=== PATIENT | female | born 1935 | race Caucasian/White ===

== ENCOUNTER 2017-06-03 10:14 | Inpatient (IN) | payer MEDICARE, OTHER ==
[~2017-06-03] VITALS: Ht 157.5 cm; Wt 75.0 kg
[2017-06-03] VITALS (7 sets, daily range): BP systolic 98–174; BP diastolic 56–79; PULSE 44–56; RESP 20; Ht 157.5 cm; Wt 75.0 kg
--- NOTE | 2017-06-03 10:46 | ERD ---
ER Documentation Chief Complaint Chief Complaint dizziness x 10 days HPI 81-year-old woman complains of dizziness 2-3 days. She states she feels weak, denies history of bradycardia, denies fevers or chills. She fell a month ago and fractured her right upper extremity, but she states at that time her symptoms were not due to dizziness and that fall was unrelated to today's symptoms. She denies digoxin use, no chest pain or shortness of breath, no headache or blurry vision. ROS All systems reviewed and are negative except as per history of present illness. Medications Home Meds Reported Medications Pregabalin* (Lyrica*) 50 Mg Capsule, 50 MG PO BID, CAP 06/03/17 Olmesartan/Hydrochlorothiazide (Olmesartan-Hctz 40-12.5 mg Tab) 1 Each Tablet, 1 TAB PO DAILY, #30 06/03/17 Memantine HCl/Donepezil HCl (Namzaric 28 mg-10 mg Capsule) 1 Each Cap.spr.24, 1 TAB PO DAILY, #30 06/03/17 Nebivolol Hcl* (Bystolic*) 10 Mg Tablet, 10 MG PO DAILY, #30 TAB 06/03/17 Atorvastatin* (Atorvastatin*) 40 Mg Tablet, 40 MG PO QHS, #30 TAB 06/03/17 Levothyroxine Sodium* (Levothyroxine Sodium*) 100 Mcg Tablet, 100 MCG PO BEFORE BREAKFAST, #30 TAB 06/03/17 Allergies Allergies: Coded Allergies: No Known Allergy (Unverified , 06/03/17) PMhx/Soc Hypertension, dyslipidemia, hypothyroidism, dementia Medical and Surgical Hx: pt denies Surgical Hx Hx Alcohol Use: No Hx Substance Use: No Hx Tobacco Use: No Smoking Status: Never smoker FmHx Family History: No diabetes Physical Exam Vitals Vital Signs Date Time Temp Pulse Resp B/P Pulse Ox O2 Delivery O2 Flow Rate FiO2 06/03/17 12:30 58 18 126/68 99 Room Air 06/03/17 12:23 65 18 163/65 99 Room Air 06/03/17 11:23 48 20 181/78 99 Room Air 06/03/17 10:52 Nasal Cannula 2 06/03/17 10:16 98.1 50 18 157/81 99 Physical Exam GENERAL: Well-developed, well-nourished, well-hydrated, appears dizzy HEENT: Moist mucous membranes, pink conjunctiva, no cervical spine tenderness or step-off deformities, no goiter, no jaundice or icterus, extraocular movements intact without pain. No submandibular induration, and no pharyngeal erythema NEURO: Alert and oriented 3, cranial nerves II through XII intact bilaterally, pupils equal round reactive to light, no focal deficits or facial asymmetry, sensation intact distally Strength 5/5 in upper and lower extremities bilaterally CARDIAC: Bradycardic and regular, no murmurs rubs or gallops LUNGS: Clear bilaterally no wheezing crackles or stridor ABDOMEN: Soft nontender, no guarding, no rigidity, no rebound, no psoas sign no obturator sign. Normoactive bowel sounds SKIN: Warm and dry to touch, no abrasions, contusions, or hematomas, no lacerations, no ecchymosis, no target lesions, and without ulcers EXTREMITIES: No clubbing cyanosis or edema, calves are bilaterally symmetrical, no Homans sign, no popliteal cord sign. Distal pulses equal and bilateral PSYCH: Normal affect without agitation or irritability Result Diagram: 06/03/17 1045 06/03/17 1045 Results 24 hrs Laboratory Tests Test 06/03/17 10:45 White Blood Count 7.110^3/ul Red Blood Count 4.2410^6/ul Hemoglobin 13.1g/dl Hematocrit 40.7% Mean Corpuscular Volume 96.0fl Mean Corpuscular Hemoglobin 30.9pg Mean Corpuscular Hemoglobin Concent 32.2g/dl Red Cell Distribution Width 12.5% Platelet Count 86486^3/UL Mean Platelet Volume 10.8fl Neutrophils % 58.6% Lymphocytes % 31.8% Monocytes % 7.2% Eosinophils % 1.6% Basophils % 0.7% Nucleated Red Blood Cells % 0.0/100WBC Neutrophils # 4.210^3/ul Lymphocytes # 2.310^3/ul Monocytes # 0.510^3/ul Eosinophils # 0.110^3/ul Basophils # 0.110^3/ul Nucleated Red Blood Cells # 0.010^3/ul Urine Color STRAW Urine Clarity CLEAR Urine pH 5.0 Urine Specific [place] 1.006 Urine Ketones NEGATIVEmg/dL Urine Nitrite NEGATIVEmg/dL Urine Bilirubin NEGATIVEmg/dL Urine Urobilinogen NEGATIVEmg/dL Urine Leukocyte Esterase 1+Noel/ul Urine Microscopic RBC 0/HPF Urine Microscopic WBC 3/HPF Urine Hemoglobin NEGATIVEmg/dL Urine Glucose NEGATIVEmg/dL Urine Total Protein NEGATIVEmg/dl Sodium Level 147mmol/L Potassium Level 4.3mmol/L Chloride Level 104mmol/L Carbon Dioxide Level 31mmol/L Anion Gap 16 Blood Urea Nitrogen 15mg/dl Creatinine 0.93mg/dl Glucose Level 99mg/dl Calcium Level 9.1mg/dl Total Bilirubin 0.5mg/dl Direct Bilirubin 0.00mg/dl Indirect Bilirubin 0.5mg/dl Aspartate Amino Transf (AST/SGOT) 27IU/L Alanine Aminotransferase (ALT/SGPT) 28IU/L Alkaline Phosphatase 140IU/L Troponin I < 0.012ng/ml Total Protein 8.1g/dl Albumin 4.5g/dl Globulin 3.60g/dl Albumin/Globulin Ratio 1.25 Lipase 201U/L Current Medications Medications (Trade) Dose Ordered Sig/Sudheer Route PRN Reason Start Time Stop Time Status Last Admin Dose Admin Lorazepam (Ativan) 0.5 mg ONCE ONCE PO 06/03/17 11:00 06/03/17 11:01 DC 06/03/17 10:58 Enalaprilat (Vasotec Iv) 1.25 mg ONCE ONCE IV 06/03/17 11:30 06/03/17 11:31 DC Procedures/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 Patient was afebrile EKG performed, read by me: Sinus bradycardia 56 bpm, normal sinus rhythm, normal axis, no acute ST segment changes, narrow QRS complex, with good R-wave progression in precordial leads. Chest X-ray 1V Interpreted by me: Soft Tissue: No acute abnormalities Bones: No acute abnormalities Mediastinum/Cardiac Silhouette/Lungs: No acute abnormalities I administered enalapril 2 5 mg IV for hypertension and lorazepam 0.5 mg p.o. for anxiety. CBC and electrolytes are normal, liver function tests were normal, troponin was negative. Urine analysis appears negative for infection. CT scan of the brain has been ordered results are pending I will follow-up. Patient has no focal neurologic deficits and her mental status is at baseline although she has had concerning dizziness for the last few days and has bradycardia mostly between the 40s and 50s. She will be admitted to telemetry setting for continued medical management cardiology consultation. Patient admitted to telemetry. Departure Diagnosis: Primary Impression: Dizziness Additional Impression: Symptomatic bradycardia Condition: NOAH Palma MD Jun 03, 2017 10:46
[2017-06-03] MEDS ORDERED: LORAZEPAM 0.5 MG TAB PO ONE (11:00)
[2017-06-03 11:01] LABS: BASOPHIL # 0.1 10^3/ul (0.0-0.1); BASOPHILS % 0.7 % (0.0-2.0); EOSINOPHILS # 0.1 10^3/ul (0.0-0.5); EOSINOPHILS % 1.6 % (0.0-7.0); HEMATOCRIT 40.7 % (37.0-47.0); HEMOGLOBIN 13.1 g/dl (12.0-16.0); LYMPHOCYTES # 2.3 10^3/ul (0.8-2.9); LYMPHOCYTES % 31.8 % (15.0-51.0); MEAN CORPUSCULAR HEMOGLOBIN 30.9 pg (29.0-33.0); MEAN CORPUSCULAR HGB CONC 32.2 g/dl (32.0-37.0); MEAN PLATELET VOLUME 10.8 fl (7.4-10.4); MONOCYTE # 0.5 10^3/ul (0.3-0.9); MONOCYTES % 7.2 % (0.0-11.0); NEUTROPHIL # 4.2 10^3/ul (1.6-7.5); NEUTROPHILS % 58.6 % (39.0-77.0); PLATELET COUNT 213 10^3/UL (140-415); RED BLOOD COUNT 4.24 10^6/ul (4.20-5.40); RED CELL DISTRIBUTION WIDTH 12.5 % (11.5-14.5); WHITE BLOOD COUNT 7.1 10^3/ul (4.8-10.8)
[2017-06-03 11:05] LABS: ADD UMIC YES; UR ASCORBIC ACID NEGATIVE (NEGATIVE); UR BILIRUBIN (Dip) NEGATIVE (NEGATIVE); UR BLOOD (Dip) NEGATIVE (NEGATIVE); UR CLARITY CLEAR (CLEAR); UR COLOR STRAW (YELLOW); UR GLUCOSE (Dip) NEGATIVE (NEGATIVE); UR KETONES (Dip) NEGATIVE (NEGATIVE); UR LEUKOCYTE ESTERASE (Dip) 1+ Leu/ul (NEGATIVE); UR NITRITE (Dip) NEGATIVE (NEGATIVE); UR NONSQUAMOUS EPITHELIAL CELL 1 /HPF (NONE SEEN); UR RBC 0 /HPF (0-5); UR SPECIFIC GRAVITY (Dip) 1.006 (1.003-1.030); UR TOTAL PROTEIN (Dip) NEGATIVE (NEGATIVE); UR UROBILINOGEN (Dip) NEGATIVE (NEGATIVE)
[2017-06-03] MEDS ORDERED: ATOR40TA68 PO (11:14)
[2017-06-03] MEDS ORDERED: LEVO100T87 PO (11:14)
[2017-06-03] MEDS ORDERED: MEMA1CAP3 PO (11:15)
[2017-06-03] MEDS ORDERED: NEBI10TA2 PO (11:15)
[2017-06-03] MEDS ORDERED: OLME1TAB83 PO (11:16)
[2017-06-03] MEDS ORDERED: PREG50CA PO (11:16)
[2017-06-03 11:27] LABS: ALANINE AMINOTRANSFERASE 28 IU/L (13-69); ALBUMIN 4.5 g/dl (3.3-4.9); ALBUMIN/GLOBULIN RATIO 1.25; ALKALINE PHOSPHATASE 140 IU/L (42-121); ANION GAP 16 (8-16); ASPARTATE AMINO TRANSFERASE 27 IU/L (15-46); BILIRUBIN,INDIRECT 0.5 mg/dl (0-1.1); BILIRUBIN,TOTAL 0.5 mg/dl (0.2-1.3); BLOOD UREA NITROGEN 15 mg/dl (7-20); CALCIUM 9.1 mg/dl (8.4-10.2); CARBON DIOXIDE 31 mmol/L (21-31); CHLORIDE 104 mmol/L (97-110); CREATININE 0.93 mg/dl (0.44-1.00); GLUCOSE 99 mg/dl (70-220); POTASSIUM 4.3 mmol/L (3.5-5.1); SODIUM 147 mmol/L (135-144); TOTAL PROTEIN 8.1 g/dl (6.1-8.1)
[2017-06-03] MEDS ORDERED: ENALAPRILAT 1.25 MG INJ IV ONE (11:30)
[2017-06-03 11:41] LABS: TROPONIN-I < 0.012 ng/ml (0.00-0.12)
--- NOTE | 2017-06-03 11:51 | RADRPT ---
PROCEDURE: XR Chest. CLINICAL INDICATION: Shortness of breath. TECHNIQUE: Single frontal view. COMPARISON: 08/14/2011. FINDINGS: The lungs are clear. The heart is enlarged. There is calcification in the aorta consistent with atherosclerosis. There is no pleural effusion. There is no pneumothorax. IMPRESSION: 1. Cardiomegaly and atherosclerosis. 2. Clear lungs. 3. Otherwise unremarkable chest radiograph. RPTAT: QQ .Madan Carey MD, MD Date Time Electronically viewed and signed by .Madan Carey MD, MD on 06/03/2017 11:51 .R/
--- NOTE | 2017-06-03 15:04 | RADRPT ---
PROCEDURE: CT BRAIN WITHOUT CONTRAST. CLINICAL INDICATION: Dizziness and at the cardia TECHNIQUE: A CT of the brain was performed on a multidetector high-resolution CT scanner utilizing axial imaging from the skull base through the vertex without IV contrast. Multiplanar reformatted images were made. Images were reviewed on a PACS workstation. The CTDIvol is 44 mGy and the DLP is 630.2 mGycm. One or more of the following dose reduction techniques were used: - Automated exposure control. - Adjustment of the mA and/or kV according to patient size. - Use of iterative reconstruction technique. COMPARISON: None FINDINGS: The posterior fossa structures are unremarkable. The janette, midbrain, and medulla appear to be with n ormal limits. There is no evidence of acute intracranial hemorrhage, infarct, or extra-axial fluid collection. No gross mass effect or midline shift. Cerebral sulci, cisternal spaces, and ventricles are prominent. Mild periventricular/subcortical white matter lucencies are identified. 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 The visualized paranasal sinuses are clear. The mastoid air cells are well-aerated. The calvarium is unremarkable. IMPRESSION: 1. No evidence of acute intracranial hemorrhage, infarct, or extra-axial fluid collection. 2. 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 RPTAT: AAPP Physician Carlos Alberto Date Time Electronically viewed and signed by Physician Carlos Alberto on 06/03/2017 15:04 BIRDIE/
[2017-06-03] MEDS ORDERED: hydrALAzine 20 MG INJ IV PRN (15:30)
--- NOTE | 2017-06-03 16:37 | CONS ---
Date/Time of Note Date/Time of Note DATE: 06/03/17 TIME: 16:32 Assessment/Plan Assessment/Plan Additional Assessment/Plan Fatigue, dizziness and poor appetite Sinus bradycardia Hypertension Status post recent mechanical fall -Patient with multiple complaints including fatigue, dizziness, chest wall pain and shortness of breath. Patient found to be bradycardic in the emergency room with heart rates in the 40s-50s. On review of medication list, patient is on beta-caitlin Bystolic. I agree with stopping this medication. Continue telemetry monitoring, check echocardiogram, carotid Dopplers, TSH. Consultation Date/Type/Reason Admit Date/Time Jun 03, 2017 at 12:36 Type of Consultation: cv Reason for Consultation Bradycardia Hx of Present Illness This is an 81-year-old female with past medical history of hypertension, dyslipidemia who presents with overall not feeling well and fatigue. In discussion with patient and granddaughter at bedside who assisted with translation, patient had a mechanical fall approximately 2 weeks ago. At that time she fell on her chest and her arm and broke her wrist. Since then, she has been having more frequent episodes of dizziness as well as pain in her chest. The pain in her chest is reproducible with palpation of the chest wall and is achy like in nature. She also complains of intermittent dizziness at times, loss of appetite, fatigue, coldness and weight loss. She denies exertional chest pain. She does get dizziness at times at rest at times with exertion. She does feel short of breath at times when she gets dizzy. 12 point review of systems was performed with all pertinent positives and negatives mentioned above and all else is negative Past Medical History Medical History: high cholesterol, hypertension Past Surgical History Past Surgical Hx: no surgical history Family History Significant Family History: no pertinent family hx Social History Alcohol Use: none Smoking Status: Never smoker Other Social History Lives at home, family lives nearby Exam/Review of Systems Vital Signs Vitals Vital Signs Date Time Temp Pulse Resp B/P Pulse Ox O2 Delivery O2 Flow Rate FiO2 06/03/17 16:00 44 06/03/17 14:26 98.3 20 174/79 98 Room Air 06/03/17 10:52 2 Exam No apparent distress, following commands, no dyspnea with speaking Constitutional: alert, oriented Head: normocephalic Respiratory: other (Coarse breath sounds bilaterally, no wheezing) Cardiovascular: other (S1-S2 heard), regular rate and rhythm Gastrointestinal: bowel sounds, non-tender, soft Extremities: other (No significant lower extremity edema, cast right arm) Results Result Diagram: 06/03/17 1045 06/03/17 1045 Results 24 hrs Laboratory Tests Test 06/03/17 10:45 White Blood Count 7.1 Red Blood Count 4.24 Hemoglobin 13.1 Hematocrit 40.7 Mean Corpuscular Volume 96.0 Mean Corpuscular Hemoglobin 30.9 Mean Corpuscular Hemoglobin Concent 32.2 Red Cell Distribution Width 12.5 Platelet Count 213 Mean Platelet Volume 10.8 H Neutrophils % 58.6 Lymphocytes % 31.8 Monocytes % 7.2 Eosinophils % 1.6 Basophils % 0.7 Nucleated Red Blood Cells % 0.0 Neutrophils # 4.2 Lymphocytes # 2.3 Monocytes # 0.5 Eosinophils # 0.1 Basophils # 0.1 Nucleated Red Blood Cells # 0.0 Urine Color STRAW Urine Clarity CLEAR Urine pH 5.0 Urine Specific [place] 1.006 Urine Ketones NEGATIVE Urine Nitrite NEGATIVE Urine Bilirubin NEGATIVE Urine Urobilinogen NEGATIVE Urine Leukocyte Esterase 1+ H Urine Microscopic RBC 0 Urine Microscopic WBC 3 Urine Hemoglobin NEGATIVE Urine Glucose NEGATIVE Urine Total Protein NEGATIVE Sodium Level 147 H Potassium Level 4.3 Chloride Level 104 Carbon Dioxide Level 31 Anion Gap 16 Blood Urea Nitrogen 15 Creatinine 0.93 Glucose Level 99 Calcium Level 9.1 Total Bilirubin 0.5 Direct Bilirubin 0.00 Indirect Bilirubin 0.5 Aspartate Amino Transf (AST/SGOT) 27 Alanine Aminotransferase (ALT/SGPT) 28 Alkaline Phosphatase 140 H Troponin I < 0.012 Total Protein 8.1 Albumin 4.5 Globulin 3.60 H Albumin/Globulin Ratio 1.25 Lipase 201 Medications Medications Current Medications Hydralazine HCl (Apresoline) 10 mg Q4H PRN IV SBP>160; Start 06/03/17 at 15:30 ; Status UNV Atorvastatin Calcium (Lipitor) 40 mg QHS PO ; Start 06/03/17 at 21:00; Status UNV Pregabalin (Lyrica) 50 mg BID PO ; Start 06/03/17 at 21:00; Status UNV Miscellaneous Information 1 tab DAILY PO ; Start 06/04/17 at 09:00; Status UNV Losartan Potassium (Cozaar) 100 mg DAILY PO ; Start 06/04/17 at 09:00; Status UNV Procedures Procedures ECG demonstrates sinus bradycardia 56 bpm, PACs, QRS 92 ms, nonspecific ST abnormality Narayan Ingram DO Jun 03, 2017 16:37
[2017-06-03] MEDS: SOD CHLORIDE 0.45% 1,000 ML IV SCH (17:02)
--- NOTE | 2017-06-03 17:11 | HP ---
Date/Time of Note Date/Time of Note DATE: 06/03/17 TIME: 17:05 Assessment/Plan VTE Prophylaxis VTE Prophylaxis Intervention: heparin Lines/Catheters IV Catheter Type (from Nrsg): Saline Lock Assessment/Plan Chief Complaint/Hosp Course Patient is 81-year-old female who presents to [facility] for symptoms of right thoracic pain and bradycardia. Assessment and plan Symptomatic bradycardia Dizziness Right thoracic pain Right arm fracture, 2 weeks prior Hypertension Mild hypernatremia Questionable UTI Vaginal itching Dementia Dyslipidemia High arthritis Hypothyroidism -Cardiology consulted, recommendations appreciated, echocardiogram and ultrasound carotids pending -MRI pending, CT noted, within normal limits -Mild hydration, antibiotics for possible UTI related dizziness -Pain control as needed -Muscle relaxer for possible muscular skeletal pain, chest x-ray negative for acute thoracic fracture, may consider dedicated thoracic x-ray if symptoms persist -Possible bradycardia secondary to not taking medications today, levothyroxine, restart in the a.m. -Blood pressure control as necessary, holding beta-caitlin, losartan twice daily per cardiology -Follow-up in the a.m. Problems: HPI/ROS Admit Date/Time Admit Date/Time Jun 03, 2017 at 12:36 Hx of Present Illness Patient is a 81-year-old female with a past medical history significant for hypothyroidism, mild dementia, hypertension, dyslipidemia, arthritis who presents to [facility] for 10 day history of dizziness and right sided thoracic pain that comes and goes. Patient's has been feeling ill for approximately 7 tired time since her fall approximately 2 weeks ago, which she fractured her right arm and is currently in a cast. The fall was unrelated to any current symptoms. Patient states that although she did not take her medications today, she normally takes her medications and follows up with primary care provider normally. Patient states that even while seated currently she is feeling as if the room is spinning around and she is scared to walk. Patient denies any shortness of breath and thoracic pain is mainly limited to movement oriented pain. Patient has never had episodes like this before. Patient denies nausea vomiting, shortness of breath, bowel or bladder dysfunction PMH: Hypothyroidism, dementia, hypertension, dyslipidemia, arthritis, right arm fracture 2 weeks ago status post mechanical fall PSH: None Social: Denies Meds: See med rec for dosages, atorvastatin, Bystolic, olmesartan, hydrochlorthiazide, memantine, donepezil, Lyrica, levothyroxine PMH/Family/Social Past Medical History Medical History: high cholesterol, hypertension Past Surgical History Past Surgical Hx: no surgical history Social History Alcohol Use: none Smoking Status: Never smoker Exam/Review of Systems Vital Signs Vitals Vital Signs Date Time Temp Pulse Resp B/P Pulse Ox O2 Delivery O2 Flow Rate FiO2 06/03/17 16:00 44 06/03/17 14:26 98.3 20 174/79 98 Room Air 06/03/17 10:52 2 Exam Exam Physical exam General: Patient is laying in bed and answers questions appropriately Mentation: Patient is alert and oriented 4, Head: Normocephalic atraumatic Eyes: EOMI, pupils reactive to light Neck: Supple, nontender, midline Respiratory: Clear to auscultation bilaterally Cardiovascular: regular rate, no obvious murmurs Gastrointestinal: non-tender to palpation, bowel sounds heard. Neurological: Moves all extremities spontaneously Skin: No new skin lesions Labs Result Diagram: 06/03/17 1045 06/03/17 1045 Medications Medications Current Medications Hydralazine HCl (Apresoline) 10 mg Q4H PRN IV SBP>170; Start 06/03/17 at 15:30 ; Status UNV Atorvastatin Calcium (Lipitor) 40 mg QHS PO ; Start 06/03/17 at 21:00; Status UNV Pregabalin (Lyrica) 50 mg BID PO ; Start 06/03/17 at 21:00; Status UNV Miscellaneous Information 1 tab DAILY PO ; Start 06/04/17 at 09:00; Status UNV Losartan Potassium 25 mg 25 mg BID PO ; Start 06/03/17 at 21:00; Status UNV Ceftriaxone Sodium (Rocephin) 50 ml @ 100 mls/hr Q24H IVPB ; Start 06/03/17 at 17:00; Status UNV Nystatin (Nystatin Powder) 1 applic BID TOP ; Start 06/03/17 at 21:00; Status UNV Methocarbamol (Robaxin) 500 mg TID PO ; Start 06/03/17 at 21:00; Status UNV NOAH RIVERA Jun 03, 2017 17:11
[2017-06-03] MEDS: CEFTRIAXONE 1 GM/50 ML (PMX) 50 ML IVPB SCH (17:16)
[2017-06-03] MEDS: DONEPEZIL HCL XX SCH (17:30)
[2017-06-03] MEDS ORDERED: ACETAMINOPHEN 325 MG TAB PO PRN (17:30)
[2017-06-03] MEDS ORDERED: ONDANSETRON 4 MG INJ IV PRN (17:30)
[2017-06-03] MEDS ORDERED: NACL 0.9% 3 ML SYG IV SCH (17:30)
[2017-06-03] MEDS ORDERED: LORAZEPAM 2 MG INJ IV PRN (17:30)
[2017-06-03] MEDS ORDERED: OXYCODONE/ACETAMINOPHEN (5/325) TAB PO PRN (17:30)
[2017-06-03] MEDS: MEMANTINE HCL XX SCH (17:30)
--- NOTE | 2017-06-03 17:40 | RADRPT ---
PROCEDURE: US carotid arteries. CLINICAL INDICATION: Dizziness. TECHNIQUE: Multiple sonographic images of the carotid arteries and vertebral arteries were obtaine d utilizing austin scale, duplex, and color-flow imaging. The images were reviewed on a PACS workstati on. COMPARISON: No prior studies are available for comparison. FINDINGS: Evaluation of the right carotid bifurcation region reveals mild atherosclerotic disease. Evaluation of the left carotid bifurcation region reveals mild atherosclerotic disease. There is antegrade flow within the vertebral arteries bilaterally. RIGHT CAROTID MEASUREMENTS: Common Carotid [id number] (cm/sec) Internal Carotid Artery 45 (cm/sec) External Carotid Artery 49 (cm/sec) Vertebral Artery 28 (cm/sec) Internal Carotid/Common Carotid1.2 LEFT CAROTID MEASUREMENTS: Common Carotid [id number] (cm/sec) Internal Carotid Artery 66 (cm/sec) External Carotid Artery 41 (cm/sec) Vertebral Artery 47 (cm/sec) Internal Carotid/Common Carotid1.3 Validated velocity measurements with angiographic measurements. Velocity criteria are extrapolated f rom diameter data as defined by the Society of Radiologists in Ultrasound Consensus Conference. Radi ology 2003; 229;340-346. This study does indirectly reference the measurement of the distal ICA kyung meter as the denominator for stenosis measurement. IMPRESSION: 1. Less than 50% stenosis bilaterally in the internal carotid arteries. 2. Normal antegrade flow in the vertebral arteries bilaterally. RPTAT: QQ SRU Consensus Conference Criteria for the Diagnosis of Carotid Artery Stenosis* Degree of Stenosis, % ICA PSV, cm/sec Plaque Estimate, % ICA/CCA PSV Ratio Normal <125 None <2.0 <50 <125 <50 <2.0 50 69 125-230 >50 2.0-4.0 >70 but less than near occlusion >230 >50 <4.0 Near occlusion High, low, or undetectable Visible Variable Total occlusion Undetectable Visible, no detectable lumen Not applicable *Cartoid artery stenosis: austin-scale and Doppler US diagnosis. Society of Radiologists in Ultrasound Consensus Conference. Radiology 2003; 229: 340-346 .Madan Carey MD, Date Time Electronically viewed and signed by .Madan Carey MD, on 06/03/2017 17:39 .R/
[2017-06-03] MEDS: LOSARTAN 50 MG TAB PO SCH (21:00)
[2017-06-03] MEDS: METHOCARBAMOL 500 MG TAB PO SCH (21:59)
[2017-06-03] MEDS: ATORVASTATIN 40 MG TAB PO SCH (21:59)
[2017-06-03] MEDS: NYSTATIN 30 GM POWDER BTL TOP SCH (21:59)
[2017-06-03] MEDS: PREGABALIN 50 MG CAP PO SCH (21:59)
[2017-06-03] MEDS: HEPARIN 5,000 UNIT/0.5 ML VIAL SC SCH (22:02)
[2017-06-04] VITALS (13 sets, daily range): BP systolic 91–153; BP diastolic 54–68; PULSE 43–56; RESP 18–20
[2017-06-04] MEDS: MEMANTINE HCL XX SCH ×2 (01:30→09:08)
[2017-06-04] MEDS: DONEPEZIL HCL XX SCH ×2 (01:30→09:08)
[2017-06-04] MEDS: PANTOPRAZOLE (EC) 40 MG TAB PO SCH (06:21)
[2017-06-04] MEDS: LEVOTHYROXINE 100 MCG TAB PO SCH (06:21)
[2017-06-04] MEDS: HEPARIN 5,000 UNIT/0.5 ML VIAL SC SCH ×3 (06:22→20:52)
[2017-06-04] MEDS: SOD CHLORIDE 0.45% 1,000 ML IV SCH (07:20)
[2017-06-04 07:51] LABS: BASOPHIL # 0.1 10^3/ul (0.0-0.1); EOSINOPHILS # 0.1 10^3/ul (0.0-0.5); EOSINOPHILS % 1.7 % (0.0-7.0); HEMATOCRIT 38.8 % (37.0-47.0); HEMOGLOBIN 12.1 g/dl (12.0-16.0); LYMPHOCYTES # 2.6 10^3/ul (0.8-2.9); MEAN CORPUSCULAR HEMOGLOBIN 29.9 pg (29.0-33.0); MEAN CORPUSCULAR HGB CONC 31.2 g/dl (32.0-37.0); MEAN CORPUSCULAR VOLUME 95.8 fl (82.0-101.0); MEAN PLATELET VOLUME 10.9 fl (7.4-10.4); MONOCYTE # 0.5 10^3/ul (0.3-0.9); MONOCYTES % 7.5 % (0.0-11.0); NEUTROPHIL # 3.8 10^3/ul (1.6-7.5); NEUTROPHILS % 53.5 % (39.0-77.0); PLATELET COUNT 203 10^3/UL (140-415); RED BLOOD COUNT 4.05 10^6/ul (4.20-5.40); RED CELL DISTRIBUTION WIDTH 12.7 % (11.5-14.5); WHITE BLOOD COUNT 7.2 10^3/ul (4.8-10.8)
[2017-06-04 08:13] LABS: ALBUMIN 3.9 g/dl (3.3-4.9); ALBUMIN/GLOBULIN RATIO 1.25; BILIRUBIN,INDIRECT 0.7 mg/dl (0-1.1); BILIRUBIN,TOTAL 0.7 mg/dl (0.2-1.3); CALCIUM 8.6 mg/dl (8.4-10.2); CHOL/HDL RATIO 2.5 RATIO; CREATININE 0.95 mg/dl (0.44-1.00); POTASSIUM 4.2 mmol/L (3.5-5.1)
[2017-06-04] MEDS: NYSTATIN 30 GM POWDER BTL TOP SCH ×2 (09:00→21:00)
[2017-06-04] MEDS ORDERED: LOSARTAN 50 MG TAB PO SCH (09:00)
[2017-06-04] MEDS: METHOCARBAMOL 500 MG TAB PO SCH ×3 (09:07→20:47)
[2017-06-04] MEDS: PREGABALIN 50 MG CAP PO SCH ×2 (09:07→20:47)
[2017-06-04] MEDS: LOSARTAN 50 MG TAB PO SCH (09:08)
--- NOTE | 2017-06-04 14:20 | PN ---
Date/Time of Note Date/Time of Note DATE: 06/04/17 TIME: 14:19 Assessment/Plan VTE Prophylaxis VTE Prophylaxis Intervention: SCD's Lines/Catheters IV Catheter Type (from Nrsg): Peripheral IV Assessment/Plan Chief Complaint/Hosp Course Patient is 81-year-old female who presents to [facility] for symptoms of right thoracic pain and bradycardia. Assessment and plan Symptomatic bradycardia Dizziness Right thoracic pain Right arm fracture, 2 weeks prior Hypertension Mild hypernatremia Questionable UTI Vaginal itching Dementia Dyslipidemia High arthritis Hypothyroidism -Cardiology consulted, recommendations appreciated, echocardiogram and ultrasound carotids noted -MRI pending, CT noted. -Mild hydration, antibiotics for possible UTI related dizziness -Pain control as needed -Muscle relaxer for possible muscular skeletal pain, chest x-ray negative for acute thoracic fracture, may consider dedicated thoracic x-ray if symptoms persist, but resolved for now -Possible bradycardia secondary to not taking medications today, levothyroxine, restart in the a.m. Still bradycardic however. -Blood pressure control as necessary, holding beta-caitlin, losartan twice daily per cardiology -Follow-up in the a.m. Problems: Subjective 24 Hr Interval Summary Free Text/Dictation right thorax pain has subsided, still dizzy Exam/Review of Systems Vital Signs Vitals Vital Signs Date Time Temp Pulse Resp B/P Pulse Ox O2 Delivery O2 Flow Rate FiO2 06/04/17 12:01 51 06/04/17 11:46 98.0 18 121/56 96 06/03/17 18:22 Room Air 06/03/17 10:52 2 Intake and Output 06/03/17 06/03/17 06/04/17 15:00 23:00 07:00 Intake Total 290 ml 550 ml Balance 290 ml 550 ml Exam Physical exam General: Patient is laying in bed and answers questions appropriately Mentation: Patient is alert and oriented 4, Head: Normocephalic atraumatic Eyes: EOMI, pupils reactive to light Neck: Supple, nontender, midline Respiratory: Clear to auscultation bilaterally Cardiovascular: regular rate, no obvious murmurs Gastrointestinal: non-tender to palpation, bowel sounds heard. Neurological: Moves all extremities spontaneously Skin: No new skin lesions Results Result Diagram: 06/04/17 0647 06/04/17 0647 Results 24 hrs Laboratory Tests Test 06/03/17 18:23 06/04/17 06:47 Troponin I < 0.012 Thyroid Stimulating Hormone (TSH) 1.430 White Blood Count 7.2 Red Blood Count 4.05 L Hemoglobin 12.1 Hematocrit 38.8 Mean Corpuscular Volume 95.8 Mean Corpuscular Hemoglobin 29.9 Mean Corpuscular Hemoglobin Concent 31.2 L Red Cell Distribution Width 12.7 Platelet Count 203 Mean Platelet Volume 10.9 H Neutrophils % 53.5 Lymphocytes % 36.0 Monocytes % 7.5 Eosinophils % 1.7 Basophils % 1.0 Nucleated Red Blood Cells % 0.0 Neutrophils # 3.8 Lymphocytes # 2.6 Monocytes # 0.5 Eosinophils # 0.1 Basophils # 0.1 Nucleated Red Blood Cells # 0.0 Sodium Level 141 Potassium Level 4.2 Chloride Level 102 Carbon Dioxide Level 29 Anion Gap 14 Blood Urea Nitrogen 17 Creatinine 0.95 Glucose Level 84 Calcium Level 8.6 Total Bilirubin 0.7 Direct Bilirubin 0.00 Indirect Bilirubin 0.7 Aspartate Amino Transf (AST/SGOT) 25 Alanine Aminotransferase (ALT/SGPT) 32 Alkaline Phosphatase 122 H Total Protein 7.0 # Albumin 3.9 Globulin 3.10 Albumin/Globulin Ratio 1.25 Triglycerides Level 123 Cholesterol Level 153 LDL Cholesterol, Calculated 69 HDL Cholesterol 59 Cholesterol/HDL Ratio 2.5 Medications Medications Current Medications Hydralazine HCl (Apresoline) 10 mg Q4H PRN IV SBP>170; Start 06/03/17 at 15:30 Atorvastatin Calcium (Lipitor) 40 mg QHS PO Last administered on 06/03/17 21: 59; Admin Dose 40 MG; Start 06/03/17 at 21:00 Pregabalin (Lyrica) 50 mg BID PO Last administered on 06/04/17 09:07; Admin Dose 50 MG; Start 06/03/17 at 21:00 Memantine (Namenda) 10 mg BID PO ; Start 06/04/17 at 21:00 Losartan Potassium 25 mg 25 mg BID PO Last administered on 06/04/17 09:08; Admin Dose 25 MG; Start 06/03/17 at 21:00 Ceftriaxone Sodium (Rocephin) 50 ml @ 100 mls/hr Q24H IVPB Last administered on 06/03/17 17:16; Admin Dose 100 MLS/HR; Start 06/03/17 at 17:00 Nystatin (Nystatin Powder) 1 applic BID TOP Last administered on 06/03/17 21: 59; Admin Dose 1 APPLIC; Start 06/03/17 at 21:00 Methocarbamol 500 mg 500 mg TID PO Last administered on 06/04/17 13:38; Admin Dose 500 MG; Start 06/03/17 at 21:00 Sodium Chloride (1/2 NS) 1,000 ml @ 70 mls/hr [id number] IV ; Start 06/03/17 at 17 :02 Lorazepam (Ativan) 0.5 mg Q6H PRN IV ANXIETY; Start 06/03/17 at 17:30 Ondansetron HCl (Zofran Inj) 4 mg Q6H PRN IV NAUSEA AND/OR VOMITING; Start 06/03/17 at 17:30 Acetaminophen (Tylenol Tab) 650 mg Q6H PRN PO PAIN LEVEL 1-3 OR FEVER; Start 06/03/17 at 17:30 Oxycodone/ Acetaminophen (Percocet (5/ 325)) 1 tab Q6H PRN PO PAIN LEVEL 6-10; Start 06/03/17 at 17:30 Bisacodyl (Dulcolax) 5 mg DAILY PRN PO CONSTIPATION; Start 06/03/17 at 17:30 Pantoprazole (Protonix Tab) 40 mg DAILY@06 PO Last administered on 06/04/17 06 :21; Admin Dose 40 MG; Start 06/04/17 at 06:00 Heparin Sodium (Porcine) (Heparin (5000 Units/0.5 ml)) 5,000 unit Q8 SC Last administered on 06/04/17 13:39; Admin Dose 5,000 UNIT; Start 06/03/17 at 22:00 Donepezil HCl (Aricept) 10 mg DAILY PO ; Start 06/05/17 at 09:00 NOAH RIVERA Jun 04, 2017 14:20
--- NOTE | 2017-06-04 15:30 | RADRPT ---
Echocardiogram Report Patient Name: KYAW MÁRQUEZ Gender: Female Date: 1935 Study Date: 04-Jun-2017 Performance Improvement Analyst: Jake Sam [facility] Location: 5539 Ref. Physician: NARAYAN INGRAM Quality: Adequate Procedures: Transthoracic echocardiogram with complete 2D, M-Mode, and doppler examination. Indications: Chest Pain. Dizziness. Hypertension. 2D/M Mode Doppler Measurement Value Normal Ranges Measurement Value Normal Ranges LVIDd 2D 4.7 3.5 - 5.6 cm GEENA Vmax 1.3 cm2 LVIDs 2D 2.5 2.1 - 4.1 cm GEENA VTI 1.5 cm2 FS 2D 45.8 % AV Mean Walker 1.4 m/sec LVPWd 2D 1.0 0.6 - 1.1 cm AV Mean PG 9.0 mmHg IVSd 2D 1.0 0.6 - 1.1 cm AV Peak Walker 2.3 m/sec IVS/LVPW 2D 1.0 AV Peak PG 22.0 mmHg AoR Diam 2D 2.3 2.0 - 3.7 cm AV VTI 42.3 cm LA/Ao 2D 2 0 - 1 AI Peak PG 55.0 mmHg EDV 2D 102.0 cm3 AI Peak Walker 3.7 m/sec ESV 2D 16.2 cm3 AI PHT 994.0 msec LA Dimen 2D 3.5 2.3 - 4.0 cm LVOT Mean Walker 0.7 m/sec LVOT Diam 1.9 cm LVOT Mean PG 2.0 mmHg LVOT Area 2.8 cm2 LVOT Peak Walker 1.1 m/sec LVOT Peak PG 5.0 mmHg LVOT VTI 22.5 cm MV E Peak Walker 0.8 m/sec MV A Peak Walker 0.9 m/sec MV E/A 0.9 MV Decel Time 296 msec MV E/A 0.9 Findings Left Ventricle: Normal left ventricular systolic function. Normal left ventricular cavity size. Normal left ventricular wall thickness. Ejection fraction is visually estimated at 65 %. Tissue Doppler/Mitral Doppler indices are consistent with impaired relaxation (Stage I diastolic dysfunction). Right Ventricle: Normal right ventricular size. Normal right ventricular systolic function. Left Atrium: The left atrium is normal in size. Right Atrium: The right atrium is normal in size. Mitral Valve: Mild mitral leaflet calcification. Mild mitral annular calcification. Trace mitral regurgitation. Aortic Valve: Aortic sclerosis without stenosis. Aortic cusps appear moderately calcified. Mild aortic valve regurgitation. Tricuspid Valve: Normal appearance and function of the tricuspid valve with trace physiologic regurgitation. Pulmonic Valve: Normal pulmonic valve appearance. Pericardium: Normal pericardium with no significant pericardial effusion. Aorta: Normal aortic root. IVC: Normal size and normal respiratory collapse consistent with normal right atrial pressure. Conclusions 1.Normal left ventricular systolic function. Normal left ventricular cavity size. Normal left ventricular wall thickness. Ejection fraction is visually estimated at 65 %. Tissue Doppler/Mitral Doppler indices are consistent with impaired relaxation (Stage I diastolic dysfunction). 2.Normal right ventricular size. Normal right ventricular systolic function. 3.The left atrium is normal in size. 4.The right atrium is normal in size. 5.Aortic sclerosis without stenosis. Aortic cusps appear moderately calcified. Mild aortic valve regurgitation. 6.No significant valvular stenosis or regurgitation seen of remaining visualized valves. 7.Normal pericardium with no significant pericardial effusion. Electronically Signed By: Narayan Ingram 04-Jun-2017 15:29:59 -0800 Patient Name: KYAW MÁRQUEZ Study Date: 04-Jun-2017 [id number]
[2017-06-04] MEDS: CEFTRIAXONE 1 GM/50 ML (PMX) 50 ML IVPB SCH (16:46)
--- NOTE | 2017-06-04 17:49 | CONS ---
Date/Time of Note Date/Time of Note DATE: 06/04/17 TIME: 17:47 Assessment/Plan Assessment/Plan Additional Assessment/Plan Fatigue, dizziness and poor appetite Sinus bradycardia Preserved ejection fraction Hypertension Status post recent mechanical fall -Heart rate trend improving on telemetry, would continue to hold AV kendall blocking agents. Blood pressure on the lower end, would adjust Cozaar to daily. Carotid Dopplers with no significant stenosis. Continue telemetry monitoring. Consultation Date/Type/Reason Admit Date/Time Jun 03, 2017 at 12:36 Initial Consult Date Type of Consultation: cv 24 HR Interval Summary Free Text/Dictation Patient seen and examined, less dizziness Exam/Review of Systems Vital Signs Vitals Vital Signs Date Time Temp Pulse Resp B/P Pulse Ox O2 Delivery O2 Flow Rate FiO2 06/04/17 16:01 55 06/04/17 15:34 98.3 18 91/54 96 06/03/17 18:22 Room Air 06/03/17 10:52 2 Intake and Output 06/03/17 06/03/17 06/04/17 15:00 23:00 07:00 Intake Total 290 ml 550 ml Balance 290 ml 550 ml Exam No apparent distress, following commands Constitutional: alert, oriented Head: normocephalic Respiratory: other (Coarse breath sounds bilaterally, no wheezing) Cardiovascular: other (S1-S2 heard), regular rate and rhythm Gastrointestinal: bowel sounds, non-tender, soft Extremities: other (No significant edema) Results Result Diagram: 06/04/17 0647 06/04/17 0647 Results 24 hrs Laboratory Tests Test 06/03/17 18:23 06/04/17 06:47 Troponin I < 0.012 Thyroid Stimulating Hormone (TSH) 1.430 White Blood Count 7.2 Red Blood Count 4.05 L Hemoglobin 12.1 Hematocrit 38.8 Mean Corpuscular Volume 95.8 Mean Corpuscular Hemoglobin 29.9 Mean Corpuscular Hemoglobin Concent 31.2 L Red Cell Distribution Width 12.7 Platelet Count 203 Mean Platelet Volume 10.9 H Neutrophils % 53.5 Lymphocytes % 36.0 Monocytes % 7.5 Eosinophils % 1.7 Basophils % 1.0 Nucleated Red Blood Cells % 0.0 Neutrophils # 3.8 Lymphocytes # 2.6 Monocytes # 0.5 Eosinophils # 0.1 Basophils # 0.1 Nucleated Red Blood Cells # 0.0 Sodium Level 141 Potassium Level 4.2 Chloride Level 102 Carbon Dioxide Level 29 Anion Gap 14 Blood Urea Nitrogen 17 Creatinine 0.95 Glucose Level 84 Calcium Level 8.6 Total Bilirubin 0.7 Direct Bilirubin 0.00 Indirect Bilirubin 0.7 Aspartate Amino Transf (AST/SGOT) 25 Alanine Aminotransferase (ALT/SGPT) 32 Alkaline Phosphatase 122 H Total Protein 7.0 # Albumin 3.9 Globulin 3.10 Albumin/Globulin Ratio 1.25 Triglycerides Level 123 Cholesterol Level 153 LDL Cholesterol, Calculated 69 HDL Cholesterol 59 Cholesterol/HDL Ratio 2.5 Medications Medications Current Medications Hydralazine HCl (Apresoline) 10 mg Q4H PRN IV SBP>170; Start 06/03/17 at 15:30 Atorvastatin Calcium (Lipitor) 40 mg QHS PO Last administered on 06/03/17 21: 59; Admin Dose 40 MG; Start 06/03/17 at 21:00 Pregabalin (Lyrica) 50 mg BID PO Last administered on 06/04/17 09:07; Admin Dose 50 MG; Start 06/03/17 at 21:00 Memantine (Namenda) 10 mg BID PO ; Start 06/04/17 at 21:00 Losartan Potassium 25 mg 25 mg BID PO Last administered on 06/04/17 09:08; Admin Dose 25 MG; Start 06/03/17 at 21:00 Ceftriaxone Sodium (Rocephin) 50 ml @ 100 mls/hr Q24H IVPB Last administered on 06/04/17 16:46; Admin Dose 100 MLS/HR; Start 06/03/17 at 17:00 Nystatin (Nystatin Powder) 1 applic BID TOP Last administered on 06/03/17 21: 59; Admin Dose 1 APPLIC; Start 06/03/17 at 21:00 Methocarbamol 500 mg 500 mg TID PO Last administered on 06/04/17 13:38; Admin Dose 500 MG; Start 06/03/17 at 21:00 Sodium Chloride (1/2 NS) 1,000 ml @ 70 mls/hr [id number] IV ; Start 06/03/17 at 17 :02 Lorazepam (Ativan) 0.5 mg Q6H PRN IV ANXIETY; Start 06/03/17 at 17:30 Ondansetron HCl (Zofran Inj) 4 mg Q6H PRN IV NAUSEA AND/OR VOMITING; Start 06/03/17 at 17:30 Acetaminophen (Tylenol Tab) 650 mg Q6H PRN PO PAIN LEVEL 1-3 OR FEVER; Start 06/03/17 at 17:30 Oxycodone/ Acetaminophen (Percocet (5/ 325)) 1 tab Q6H PRN PO PAIN LEVEL 6-10; Start 06/03/17 at 17:30 Bisacodyl (Dulcolax) 5 mg DAILY PRN PO CONSTIPATION; Start 06/03/17 at 17:30 Pantoprazole (Protonix Tab) 40 mg DAILY@06 PO Last administered on 06/04/17 06 :21; Admin Dose 40 MG; Start 06/04/17 at 06:00 Heparin Sodium (Porcine) (Heparin (5000 Units/0.5 ml)) 5,000 unit Q8 SC Last administered on 06/04/17 13:39; Admin Dose 5,000 UNIT; Start 06/03/17 at 22:00 Donepezil HCl (Aricept) 10 mg DAILY PO ; Start 06/05/17 at 09:00 Narayan Ingram DO Jun 04, 2017 17:49
--- NOTE | 2017-06-04 19:42 | RADRPT ---
PROCEDURE: MRI Brain and IACs, without contrast. CLINICAL INDICATION: Dizziness. TECHNIQUE: An MRI of the brain was performed utilizing the following sequences: Sagittal T1 weigh jermain, axial T2 weighted, axial diffusion weighted (EPI technique [id number]), axial ADC mapping, and axia l FLAIR. Additionally, thin section imaging through the internal auditory canals was performed utili magaling the following sequences: 3D volume high resolution T2 weighted images. COMPARISON: Brain CT06/03/2017. FINDINGS: MRI BRAIN: No diffusion weighted abnormalities are seen to suggest the presence of acute ischemia or recent inf arct. There is 1.3 x 1.3 x 1 cm (AP x transverse x craniocaudal) extra-axial mass overlying the lef t posterior frontal lobe with associated gradient susceptibility effect which likely represent a ino cified meningioma. There is no evidence of intracranial hemorrhage or midline shift. No extra-axial fluid collections are seen. The ventricles and sulci are mildly enlarged indicative of volume loss. There are mild scattered foci of T2 FLAIR hyperintensity in the periventricular, deep, and subcortic al white matter, which are nonspecific in etiology but likely reflect chronic small vessel ischemic changes. Small T2 hyperintense foci are noted in bilateral lentiform nuclei and caudate nuclei wh ich likely represent dilated perivascular spaces. No abnormal intracranial vascular flow void is noted. The visualized paranasal sinuses demonstrate m ild scattered mucosal thickening. Mild opacification of the right mastoid air cells are noted. MRI IACS: The internal auditory canals are patent. The seventh and eighth cranial nerve complexes are unremar kable. No cerebellar pontine angle mass lesion is detected. The inner ear structures including the cochlea, vestibule and semicircular canals are unremarkable. No vascular loops are identified. Th e visualized fifth cranial nerves and Meckel's cave reveal no abnormality. The mastoid air cells are clear. IMPRESSION: 1. No acute intracranial hemorrhage or infarction. 2. 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 3. Mild chronic small vessel changes and mild generalized cerebral volume loss. 4. Otherwise unremarkable unenhanced MRI of internal auditory canals. RPTAT: HFN .Jamshid Crockett MD, Date Time Electronically viewed and signed by .Jamshid Crockett MD, on 06/04/2017 19:42 .N/
[2017-06-04] MEDS: MEMANTINE 10 MG TAB PO SCH (20:47)
[2017-06-04] MEDS: ATORVASTATIN 40 MG TAB PO SCH (20:47)
[2017-06-05] VITALS (11 sets, daily range): BP systolic 101–132; BP diastolic 55–60; PULSE 44–54; RESP 18–20
[2017-06-05] MEDS: SOD CHLORIDE 0.45% 1,000 ML IV SCH ×2 (06:03→11:56)
[2017-06-05] MEDS: LEVOTHYROXINE 100 MCG TAB PO SCH (06:04)
[2017-06-05] MEDS: PANTOPRAZOLE (EC) 40 MG TAB PO SCH (06:04)
[2017-06-05] MEDS: HEPARIN 5,000 UNIT/0.5 ML VIAL SC SCH ×3 (06:11→20:51)
[2017-06-05 07:26] LABS: BASOPHILS % 0.6 % (0.0-2.0); EOSINOPHILS # 0.2 10^3/ul (0.0-0.5); EOSINOPHILS % 2.2 % (0.0-7.0); HEMATOCRIT 36.3 % (37.0-47.0); HEMOGLOBIN 11.4 g/dl (12.0-16.0); LYMPHOCYTES # 2.6 10^3/ul (0.8-2.9); LYMPHOCYTES % 38.8 % (15.0-51.0); MEAN CORPUSCULAR HEMOGLOBIN 30.2 pg (29.0-33.0); MEAN CORPUSCULAR HGB CONC 31.4 g/dl (32.0-37.0); MEAN PLATELET VOLUME 11.4 fl (7.4-10.4); MONOCYTE # 0.6 10^3/ul (0.3-0.9); MONOCYTES % 8.1 % (0.0-11.0); NEUTROPHIL # 3.4 10^3/ul (1.6-7.5); PLATELET COUNT 184 10^3/UL (140-415); RED BLOOD COUNT 3.78 10^6/ul (4.20-5.40); RED CELL DISTRIBUTION WIDTH 12.5 % (11.5-14.5); WHITE BLOOD COUNT 6.8 10^3/ul (4.8-10.8)
[2017-06-05 07:54] LABS: CALCIUM 8.6 mg/dl (8.4-10.2); CREATININE 0.92 mg/dl (0.44-1.00); MAGNESIUM 1.9 mg/dl (1.7-2.5); PHOSPHORUS 4.5 mg/dl (2.5-4.9); POTASSIUM 4.1 mmol/L (3.5-5.1)
[2017-06-05] MEDS: PREGABALIN 50 MG CAP PO SCH ×2 (08:49→20:42)
[2017-06-05] MEDS: MEMANTINE 10 MG TAB PO SCH ×2 (08:49→20:42)
[2017-06-05] MEDS: METHOCARBAMOL 500 MG TAB PO SCH ×3 (08:49→20:42)
[2017-06-05] MEDS ORDERED: LOSARTAN 50 MG TAB PO SCH (09:00)
[2017-06-05] MEDS: NYSTATIN 30 GM POWDER BTL TOP SCH ×2 (09:00→20:43)
[2017-06-05] MEDS ORDERED: DONEPEZIL 10 MG TAB PO SCH (09:00)
--- NOTE | 2017-06-05 11:45 | PN ---
Date/Time of Note Date/Time of Note DATE: 06/05/17 TIME: 11:40 Assessment/Plan VTE Prophylaxis VTE Prophylaxis Intervention: SCD's Lines/Catheters IV Catheter Type (from Nrsg): Peripheral IV Urinary Cath still in place: No Assessment/Plan Chief Complaint/Hosp Course Patient is 81-year-old female who presents to [facility] for symptoms of right thoracic pain and bradycardia. Assessment and plan Symptomatic bradycardia Dizziness Right thoracic pain Right arm fracture, 2 weeks prior Hypertension Mild hypernatremia Questionable UTI Vaginal itching Dementia Dyslipidemia High arthritis Hypothyroidism -Cardiology consulted, recommendations appreciated, echocardiogram and ultrasound carotids noted -MRI noted calcified meningioma, ?dizziness related, but unlikely, however patient still has dizziness despite current medical management. will try meclizine and will consult neuro to review imaging, Dr. Alfred Wood. -Mild hydration, antibiotics for possible UTI related dizziness, stopping today -Pain control as needed -Muscle relaxer for possible muscular skeletal pain, chest x-ray negative for acute thoracic fracture, may consider dedicated thoracic x-ray if symptoms persist, but resolved for now -Possible bradycardia secondary to not taking medications today, levothyroxine, restarted, but still bradycardic, cards recs appreciated -Blood pressure control as necessary, holding beta-caitlin, losartan daily per cards -Follow-up in the a.m. dispo: -cards to manage BP meds, meds might have played a factor in dizziness ? hypotension -neurology consult/image review pending -back to home once cleared from cards and neuro Problems: Subjective 24 Hr Interval Summary Free Text/Dictation dizziness is improved Exam/Review of Systems Vital Signs Vitals Vital Signs Date Time Temp Pulse Resp B/P Pulse Ox O2 Delivery O2 Flow Rate FiO2 06/05/17 08:00 44 06/05/17 07:41 98.0 18 132/60 98 06/03/17 18:22 Room Air 06/03/17 10:52 2 Intake and Output 06/04/17 06/04/17 06/05/17 15:00 23:00 07:00 Intake Total 550 ml 800 ml Balance 550 ml 800 ml Exam Physical exam General: Patient is laying in bed and answers questions appropriately Mentation: Patient is alert and oriented 4, Head: Normocephalic atraumatic Eyes: EOMI, pupils reactive to light Neck: Supple, nontender, midline Respiratory: Clear to auscultation bilaterally Cardiovascular: regular rate, no obvious murmurs Gastrointestinal: non-tender to palpation, bowel sounds heard. Neurological: Moves all extremities spontaneously Skin: No new skin lesions Results Result Diagram: 06/05/1721 06/05/17 0621 Results 24 hrs Laboratory Tests Test 06/05/17 06:21 White Blood Count 6.8 Red Blood Count 3.78 L Hemoglobin 11.4 L Hematocrit 36.3 L Mean Corpuscular Volume 96.0 Mean Corpuscular Hemoglobin 30.2 Mean Corpuscular Hemoglobin Concent 31.4 L Red Cell Distribution Width 12.5 Platelet Count 184 Mean Platelet Volume 11.4 H Neutrophils % 50.0 Lymphocytes % 38.8 Monocytes % 8.1 Eosinophils % 2.2 Basophils % 0.6 Nucleated Red Blood Cells % 0.0 Neutrophils # 3.4 Lymphocytes # 2.6 Monocytes # 0.6 Eosinophils # 0.2 Basophils # 0.0 Nucleated Red Blood Cells # 0.0 Sodium Level 140 Potassium Level 4.1 Chloride Level 106 Carbon Dioxide Level 27 Anion Gap 11 Blood Urea Nitrogen 22 H Creatinine 0.92 Glucose Level 92 Calcium Level 8.6 Phosphorus Level 4.5 Magnesium Level 1.9 Medications Medications Current Medications Hydralazine HCl (Apresoline) 10 mg Q4H PRN IV SBP>170; Start 06/03/17 at 15:30 Atorvastatin Calcium (Lipitor) 40 mg QHS PO Last administered on 06/04/17 20: 47; Admin Dose 40 MG; Start 06/03/17 at 21:00 Pregabalin (Lyrica) 50 mg BID PO Last administered on 06/05/17 08:49; Admin Dose 50 MG; Start 06/03/17 at 21:00 Memantine 10 mg 10 mg BID PO Last administered on 06/05/17 08:49; Admin Dose 10 MG; Start 06/04/17 at 21:00 Ceftriaxone Sodium (Rocephin) 50 ml @ 100 mls/hr Q24H IVPB Last administered on 06/04/17 16:46; Admin Dose 100 MLS/HR; Start 06/03/17 at 17:00 Nystatin (Nystatin Powder) 1 applic BID TOP Last administered on 06/04/17 21: 00; Admin Dose 1 APPLIC; Start 06/03/17 at 21:00 Methocarbamol 500 mg 500 mg TID PO Last administered on 06/05/17 08:49; Admin Dose 500 MG; Start 06/03/17 at 21:00 Sodium Chloride (1/2 NS) 1,000 ml @ 70 mls/hr [id number] IV Last administered on 06/05/17 06:03; Admin Dose 70 MLS/HR; Start 06/03/17 at 17:02 Lorazepam (Ativan) 0.5 mg Q6H PRN IV ANXIETY; Start 06/03/17 at 17:30 Ondansetron HCl (Zofran Inj) 4 mg Q6H PRN IV NAUSEA AND/OR VOMITING; Start 06/03/17 at 17:30 Acetaminophen (Tylenol Tab) 650 mg Q6H PRN PO PAIN LEVEL 1-3 OR FEVER; Start 06/03/17 at 17:30 Oxycodone/ Acetaminophen (Percocet (5/ 325)) 1 tab Q6H PRN PO PAIN LEVEL 6-10; Start 06/03/17 at 17:30 Bisacodyl (Dulcolax) 5 mg DAILY PRN PO CONSTIPATION; Start 06/03/17 at 17:30 Pantoprazole (Protonix Tab) 40 mg DAILY@06 PO Last administered on 06/05/17 06:04; Admin Dose 40 MG; Start 06/04/17 at 06:00 Heparin Sodium (Porcine) (Heparin (5000 Units/0.5 ml)) 5,000 unit Q8 SC Last administered on 06/05/17 06:11; Admin Dose 5,000 UNIT; Start 06/03/17 at 22:00 Donepezil HCl (Aricept) 10 mg DAILY PO Last administered on 06/05/17 08:49; Admin Dose 10 MG; Start 06/05/17 at 09:00 Losartan Potassium (Cozaar) 25 mg DAILY PO Last administered on 06/05/17 08: 49; Admin Dose 25 MG; Start 06/05/17 at 09:00 NOAH RIVERA Jun 05, 2017 11:45
[2017-06-05] MEDS ORDERED: MECLIZINE 12.5 MG TAB PO PRN (12:00)
--- NOTE | 2017-06-05 12:11 | CONS ---
Date/Time of Note Date/Time of Note DATE: 06/05/17 TIME: 12:06 Assessment/Plan Assessment/Plan Additional Assessment/Plan Fatigue, dizziness and poor appetite, improved Sinus bradycardia Preserved ejection fraction Hypertension Status post recent mechanical fall -Heart rate trend improving on telemetry, would continue to hold AV kendall blocking agents. Blood pressure trend improved on lower dose of Cozaar, but still borderline, would decrease dose further. On review of medications, patient is on Aricept, this could cause bradycardia and dizziness, I will stop this medication. Possible side effect of Namenda as well is dizziness, consider holding this medication. Carotid Dopplers with no significant stenosis. No need for pacemaker at the current time. Consultation Date/Type/Reason Admit Date/Time Jun 03, 2017 at 12:36 Type of Consultation: cv 24 HR Interval Summary Free Text/Dictation Patient seen and examined in discussion with [id number] on the phone for translation. Patient feeling better, denies dizziness. Exam/Review of Systems Vital Signs Vitals Vital Signs Date Time Temp Pulse Resp B/P Pulse Ox O2 Delivery O2 Flow Rate FiO2 06/05/17 11:57 97.9 53 18 110/56 98 06/03/17 18:22 Room Air 06/03/17 10:52 2 Intake and Output 06/04/17 06/04/17 06/05/17 15:00 23:00 07:00 Intake Total 550 ml 800 ml Balance 550 ml 800 ml Exam Follows commands, no apparent distress Constitutional: alert, oriented Head: normocephalic Respiratory: other (Coarse breath sounds bilaterally, no wheezing) Cardiovascular: other (S1-S2 heard), regular rate and rhythm Gastrointestinal: bowel sounds, non-tender, soft Extremities: edema (Trace) Results Result Diagram: 06/05/1762006/05/17620 Results 24 hrs Laboratory Tests Test 06/05/17 06:21 White Blood Count 6.8 Red Blood Count 3.78 L Hemoglobin 11.4 L Hematocrit 36.3 L Mean Corpuscular Volume 96.0 Mean Corpuscular Hemoglobin 30.2 Mean Corpuscular Hemoglobin Concent 31.4 L Red Cell Distribution Width 12.5 Platelet Count 184 Mean Platelet Volume 11.4 H Neutrophils % 50.0 Lymphocytes % 38.8 Monocytes % 8.1 Eosinophils % 2.2 Basophils % 0.6 Nucleated Red Blood Cells % 0.0 Neutrophils # 3.4 Lymphocytes # 2.6 Monocytes # 0.6 Eosinophils # 0.2 Basophils # 0.0 Nucleated Red Blood Cells # 0.0 Sodium Level 140 Potassium Level 4.1 Chloride Level 106 Carbon Dioxide Level 27 Anion Gap 11 Blood Urea Nitrogen 22 H Creatinine 0.92 Glucose Level 92 Calcium Level 8.6 Phosphorus Level 4.5 Magnesium Level 1.9 Medications Medications Current Medications Hydralazine HCl (Apresoline) 10 mg Q4H PRN IV SBP>170; Start 06/03/17 at 15:30 Atorvastatin Calcium (Lipitor) 40 mg QHS PO Last administered on 06/04/17 20: 47; Admin Dose 40 MG; Start 06/03/17 at 21:00 Pregabalin (Lyrica) 50 mg BID PO Last administered on 06/05/17 08:49; Admin Dose 50 MG; Start 06/03/17 at 21:00 Memantine (Namenda) 10 mg BID PO Last administered on 06/05/17 08:49; Admin Dose 10 MG; Start 06/04/17 at 21:00 Nystatin (Nystatin Powder) 1 applic BID TOP Last administered on 06/04/17 21: 00; Admin Dose 1 APPLIC; Start 06/03/17 at 21:00 Methocarbamol 500 mg 500 mg TID PO Last administered on 06/05/17 08:49; Admin Dose 500 MG; Start 06/03/17 at 21:00 Sodium Chloride (1/2 NS) 1,000 ml @ 70 mls/hr [id number] IV Last administered on 06/05/17 06:03; Admin Dose 70 MLS/HR; Start 06/03/17 at 17:02 Lorazepam (Ativan) 0.5 mg Q6H PRN IV ANXIETY; Start 06/03/17 at 17:30 Ondansetron HCl (Zofran Inj) 4 mg Q6H PRN IV NAUSEA AND/OR VOMITING; Start 06/03/17 at 17:30 Acetaminophen (Tylenol Tab) 650 mg Q6H PRN PO PAIN LEVEL 1-3 OR FEVER; Start 06/03/17 at 17:30 Oxycodone/ Acetaminophen (Percocet (5/ 325)) 1 tab Q6H PRN PO PAIN LEVEL 6-10; Start 06/03/17 at 17:30 Bisacodyl (Dulcolax) 5 mg DAILY PRN PO CONSTIPATION; Start 06/03/17 at 17:30 Pantoprazole (Protonix Tab) 40 mg DAILY@06 PO Last administered on 06/05/17 06:04; Admin Dose 40 MG; Start 06/04/17 at 06:00 Heparin Sodium (Porcine) (Heparin (5000 Units/0.5 ml)) 5,000 unit Q8 SC Last administered on 06/05/17 06:11; Admin Dose 5,000 UNIT; Start 06/03/17 at 22:00 Losartan Potassium (Cozaar) 25 mg DAILY PO Last administered on 06/05/17 08: 49; Admin Dose 25 MG; Start 06/05/17 at 09:00 Cephalexin (Keflex) 500 mg Q8 PO ; Start 06/05/17 at 14:00; Stop 06/07/17 at 13:59 Meclizine HCl (Antivert) 12.5 mg TID PRN PO dizziness; Start 06/05/17 at 12:00 Narayan Ingram DO Jun 05, 2017 12:11
[2017-06-05] MEDS: MECLIZINE 12.5 MG TAB PO SCH ×2 (12:51→20:42)
[2017-06-05] MEDS: CEPHALEXIN 500 MG CAP PO SCH ×2 (13:00→20:42)
--- NOTE | 2017-06-05 14:49 | CONS ---
DATE OF ADMISSION: 06/03/2017 DATE OF CONSULTATION: NEUROLOGICAL CONSULTATION Thank you, Dr. Denis, for your kind referral for evaluation of dizziness. HISTORY OF PRESENT ILLNESS: The patient is an 81-year-old lady with past medical history of hypothy roidism, hypertension, dyslipidemia, arthritis who presented with chest pain and dizziness for about 10 days. She suffered a fall and broke her right arm about 2 weeks ago tripping at night at home. I talked to the patient using her granddaughter on the phone as an tool and die repairer, so the patient told me that she did have blunt head trauma and she hit her head when she fell. Since, she complains of severe dizziness, it is vertiginous dizziness, overall has gotten somewhat better in the hospital, but still present, especially worsening with movements. The patient also found to have bradycardia and heart rate in the 40s to 50s and layout mechanic is on case adjusting her medications. PAST MEDICAL HISTORY: As above. FAMILY HISTORY: No pertinent family history. SOCIAL HISTORY: No alcohol, tobacco, drug use. The patient had CAT scan followed by MRI of the brain. MRI shows a small 1.3 cm probable calcified meningioma overlying posterior frontal lobe. MRI was done without contrast. No mass effect or edema seen. Her labs show hemoglobin 11, hematocrit 36, normal WBCs and platelets. BUN 22, creatinine 0.92. No rmal liver function tests. Urinalysis with 1+ leukocyte esterase, 3 WBCs. CURRENT MEDICATIONS: 1. Losartan. 2. Keflex. 3. Antivert 12.5 as needed for dizziness. 4. She is getting Namenda 10 mg twice daily. 5. L-thyroxine. 6. Pantoprazole. 7. Heparin. 8. Atorvastatin. 9. Gabapentin 50 twice daily. 10. Nystatin. 11. Robaxin. 12. Lorazepam. 13. . HOME MEDICATIONS: Included Namenda, but she was taking XR 28 mg 1 time a day. PHYSICAL EXAMINATION: VITAL SIGNS: 97.9 temperature, 52 pulse, 110/56, blood pressure, 18 respirations. GENERAL: Not in acute distress, lying in bed. HEENT: Normocephalic, atraumatic head. NECK: No carotid bruits. No thyromegaly. LUNGS: Clear to auscultation bilaterally. CARDIAC: Normal cardiac rhythm and sounds. ABDOMEN: Soft. EXTREMITIES: No cyanosis, clubbing or edema. Right forearm is in cast. NEUROLOGIC EXAM: She is awake, alert, and oriented x3 with fluent speech. Cranial nerve examinatio n shows intact visual garza bilaterally. Pupils reactive from 4 to 2 mm bilaterally. Extraocular movements intact without nystagmus. Symmetrical face. Preserved facial strength and sensation. To ngue is in midline. Palate elevates symmetrically. Motor strength examination preserved in all ext remities. Normal bulk, tone and strength. Sensory examination intact to light touch and pain. Zoe p tendon reflexes 2+ throughout, downgoing toes bilaterally. Coordination preserved on [id number] nger testing. No dysmetria or tremor. Gait was not assessed. The patient gets very vertiginous wi th movements or getting up according to her, so I did not perform Jerusalem-Hallpike maneuver. A Jerusalem-Hallpike maneuver was not done. IMPRESSION: Vertigo following blunt head trauma secondary to incidental fall 2 weeks ago, especiall y noticeable about 10 days ago. Overall, slightly getting better. Vertigo has definite positional component that likely represents benign positional vertigo. I am not able to obtain her Jerusalem-Hallpik e maneuver. I will change meclizine from p.r.n. to around the clock, also I would recommend to get physical therapy with vestibular exercises. Thank you very much for this interesting consultation. The patient has a small calcified meningioma which could be followed by serial MRI, probably needed to be repeated in 6 or 12 months. Dictated By: SANDRA DENNISON/BRIONNA Conf#: [id number] DID#: [id number] CC: CARRIE INMAN;*EndCC*
[2017-06-05] MEDS: ATORVASTATIN 40 MG TAB PO SCH (20:41)
[2017-06-06] VITALS (12 sets, daily range): BP systolic 98–136; BP diastolic 55–64; PULSE 46–58; RESP 18–20
[2017-06-06] MEDS: HEPARIN 5,000 UNIT/0.5 ML VIAL SC SCH ×3 (06:00→20:55)
[2017-06-06 06:21] LABS: WHITE BLOOD COUNT 5.9 10^3/ul (4.8-10.8)
[2017-06-06 06:22] LABS: BASOPHILS % 0.5 % (0.0-2.0); EOSINOPHILS # 0.1 10^3/ul (0.0-0.5); EOSINOPHILS % 2.2 % (0.0-7.0); HEMATOCRIT 38.4 % (37.0-47.0); HEMOGLOBIN 12.2 g/dl (12.0-16.0); LYMPHOCYTES # 2.6 10^3/ul (0.8-2.9); LYMPHOCYTES % 44.9 % (15.0-51.0); MEAN CORPUSCULAR HEMOGLOBIN 30.5 pg (29.0-33.0); MEAN CORPUSCULAR HGB CONC 31.8 g/dl (32.0-37.0); MONOCYTE # 0.5 10^3/ul (0.3-0.9); MONOCYTES % 8.4 % (0.0-11.0); NEUTROPHIL # 2.6 10^3/ul (1.6-7.5); NEUTROPHILS % 43.8 % (39.0-77.0); PLATELET COUNT 187 10^3/UL (140-415); RED CELL DISTRIBUTION WIDTH 12.7 % (11.5-14.5)
[2017-06-06] MEDS: PANTOPRAZOLE (EC) 40 MG TAB PO SCH (06:22)
[2017-06-06] MEDS: LEVOTHYROXINE 100 MCG TAB PO SCH (06:22)
[2017-06-06] MEDS: CEPHALEXIN 500 MG CAP PO SCH ×3 (06:23→20:51)
[2017-06-06 06:45] LABS: CALCIUM 8.9 mg/dl (8.4-10.2); CREATININE 0.97 mg/dl (0.44-1.00); MAGNESIUM 2.1 mg/dl (1.7-2.5); PHOSPHORUS 4.5 mg/dl (2.5-4.9); POTASSIUM 4.3 mmol/L (3.5-5.1)
[2017-06-06] MEDS: MECLIZINE 12.5 MG TAB PO SCH ×3 (08:53→20:52)
[2017-06-06] MEDS: MEMANTINE 10 MG TAB PO SCH ×2 (08:53→20:52)
[2017-06-06] MEDS: METHOCARBAMOL 500 MG TAB PO SCH ×3 (08:53→20:52)
[2017-06-06] MEDS: LOSARTAN 25 MG TAB PO SCH (08:54)
[2017-06-06] MEDS: NYSTATIN 30 GM POWDER BTL TOP SCH ×2 (08:55→20:55)
--- NOTE | 2017-06-06 09:18 | CONS ---
Date/Time of Note Date/Time of Note DATE: 06/06/17 TIME: 09:15 Assessment/Plan Assessment/Plan Chief Complaint/Hosp Course Fatigue, dizziness and poor appetite, improved Sinus bradycardia Preserved ejection fraction Hypertension Status post recent mechanical fall Problems: Additional Assessment/Plan 1) no malignant arrhythmias 2) no PPM 3) avoid av kendall blockers Consultation Date/Type/Reason Admit Date/Time Jun 03, 2017 at 12:36 Initial Consult Date Type of Consultation: cv Detailed Summary Respiratory: no complaints Cardiovascular: no complaints Gastrointestinal: no complaints Genitourinary: no complaints Skin: no complaints Neurologic: no complaints Lymphatic: no complaints Exam/Review of Systems Vital Signs Vitals Vital Signs Date Time Temp Pulse Resp B/P Pulse Ox O2 Delivery O2 Flow Rate FiO2 06/06/17 08:06 46 06/06/17 07:42 97.9 18 120/58 94 06/03/17 18:22 Room Air 06/03/17 10:52 2 Intake and Output 06/05/17 06/05/17 06/06/17 15:00 23:00 07:00 Intake Total 500 ml Balance 500 ml Exam Constitutional: alert, oriented Head: atraumatic, normocephalic Neck: supple Respiratory: clear to auscultation Cardiovascular: regular rate and rhythm Gastrointestinal: soft Musculoskeletal: nl extremities to inspection Extremities: normal pulses Results Result Diagram: 06/06/17 0534 06/06/17 0534 Results 24 hrs Laboratory Tests Test 06/06/17 05:34 White Blood Count 5.9 Red Blood Count 4.00 L Hemoglobin 12.2 Hematocrit 38.4 Mean Corpuscular Volume 96.0 Mean Corpuscular Hemoglobin 30.5 Mean Corpuscular Hemoglobin Concent 31.8 L Red Cell Distribution Width 12.7 Platelet Count 187 Mean Platelet Volume 11.0 H Neutrophils % 43.8 Lymphocytes % 44.9 Monocytes % 8.4 Eosinophils % 2.2 Basophils % 0.5 Nucleated Red Blood Cells % 0.0 Neutrophils # 2.6 Lymphocytes # 2.6 Monocytes # 0.5 Eosinophils # 0.1 Basophils # 0.0 Nucleated Red Blood Cells # 0.0 Sodium Level 142 Potassium Level 4.3 Chloride Level 106 Carbon Dioxide Level 30 Anion Gap 10 Blood Urea Nitrogen 21 H Creatinine 0.97 Glucose Level 90 Calcium Level 8.9 Phosphorus Level 4.5 Magnesium Level 2.1 Medications Medications Current Medications Hydralazine HCl (Apresoline) 10 mg Q4H PRN IV SBP>170; Start 06/03/17 at 15:30 Atorvastatin Calcium (Lipitor) 40 mg QHS PO Last administered on 06/05/17 20: 41; Admin Dose 40 MG; Start 06/03/17 at 21:00 Pregabalin (Lyrica) 50 mg BID PO Last administered on 06/05/17 20:42; Admin Dose 50 MG; Start 06/03/17 at 21:00 Memantine (Namenda) 10 mg BID PO Last administered on 06/06/17 08:53; Admin Dose 10 MG; Start 06/04/17 at 21:00 Nystatin (Nystatin Powder) 1 applic BID TOP Last administered on 06/04/17 21: 00; Admin Dose 1 APPLIC; Start 06/03/17 at 21:00 Methocarbamol (Robaxin) 500 mg TID PO Last administered on 06/06/17 08:53; Admin Dose 500 MG; Start 06/03/17 at 21:00 Lorazepam (Ativan) 0.5 mg Q6H PRN IV ANXIETY; Start 06/03/17 at 17:30 Ondansetron HCl (Zofran Inj) 4 mg Q6H PRN IV NAUSEA AND/OR VOMITING; Start 06/03/17 at 17:30 Acetaminophen (Tylenol Tab) 650 mg Q6H PRN PO PAIN LEVEL 1-3 OR FEVER; Start 06/03/17 at 17:30 Oxycodone/ Acetaminophen (Percocet (5/ 325)) 1 tab Q6H PRN PO PAIN LEVEL 6-10; Start 06/03/17 at 17:30 Bisacodyl (Dulcolax) 5 mg DAILY PRN PO CONSTIPATION; Start 06/03/17 at 17:30 Pantoprazole (Protonix Tab) 40 mg DAILY@06 PO Last administered on 06/06/17 06:22; Admin Dose 40 MG; Start 06/04/17 at 06:00 Heparin Sodium (Porcine) (Heparin (5000 Units/0.5 ml)) 5,000 unit Q8 SC Last administered on 06/05/17 20:51; Admin Dose 5,000 UNIT; Start 06/03/17 at 22:00 Cephalexin (Keflex) 500 mg Q8 PO Last administered on 06/06/17 06:23; Admin Dose 500 MG; Start 06/05/17 at 14:00; Stop 06/07/17 at 13:59 Losartan Potassium (Cozaar) 12.5 mg DAILY PO Last administered on 06/06/17 08 :54; Admin Dose 12.5 MG; Start 06/06/17 at 09:00 Meclizine HCl (Antivert) 12.5 mg TID PO Last administered on 06/06/17 08:53; Admin Dose 12.5 MG; Start 06/05/17 at 13:00 PEG GARCIA MD Jun 06, 2017 09:18
[2017-06-06] MEDS: PREGABALIN 50 MG CAP PO SCH ×2 (09:56→20:52)
--- NOTE | 2017-06-06 11:43 | PN ---
Date/Time of Note Date/Time of Note DATE: 06/06/17 TIME: 11:43 Assessment/Plan VTE Prophylaxis VTE Prophylaxis Intervention: SCD's Lines/Catheters IV Catheter Type (from Nrs): Saline Lock Urinary Cath still in place: No Assessment/Plan Assessment/Plan 1. Symptomatic bradycardia - Cardiology consultation appreciated and recommending avoiding AV kendall blockers - ECHO and carotid US results reviewed 2. BPPV - Neurology on board and recommendations appreciated. Meclizine changed from p.r.n. to around the clock and recommending to get physical therapy with vestibular exercises. 3. Right thoracic pain- resolved - Muscle relaxer for possible muscular skeletal pain - chest x-ray negative for acute thoracic fracture 4. Right arm fracture, 2 weeks prior - Stable 5. Hypertension - continue current medications. - stable 6. Dementia - stable 7. Dyslipidemia 8. Hypothyroidism - on levothyroxine 9. Calcified meningioma - Neurology on board and recommending follow up MRI imaging in 6-12 months 10. Disposition - Will discharge once cleared by Neurology and able to ambulate without any issues Subjective 24 Hr Interval Summary Free Text/Dictation Patient states she is feeling better compared to yesterday. Denies any worsening of dizziness and has ambulated to restroom without any issues. Had no ambulated with PT yet today. No new complaints and no acute overnight events Exam/Review of Systems Vital Signs Vitals Vital Signs Date Time Temp Pulse Resp B/P Pulse Ox O2 Delivery O2 Flow Rate FiO2 06/06/17 11:33 97.9 56 18 136/63 98 06/03/17 18:22 Room Air 06/03/17 10:52 2 Intake and Output 06/05/17 06/05/17 06/06/17 15:00 23:00 07:00 Intake Total 500 ml Balance 500 ml Exam General: Patient is in no acute distress, laying in bed and answers questions appropriately Mentation: Patient is alert and oriented 4, Head: Normocephalic atraumatic Eyes: EOMI, pupils reactive to light Neck: Supple, nontender, midline Respiratory: Clear to auscultation bilaterally Cardiovascular: regular rate, no obvious murmurs Gastrointestinal: non-tender to palpation, bowel sounds heard. Neurological: Moves all extremities spontaneously Results Result Diagram: 06/06/17 0534 06/06/17 0534 Results 24 hrs Laboratory Tests Test 06/06/17 05:34 White Blood Count 5.9 Red Blood Count 4.00 L Hemoglobin 12.2 Hematocrit 38.4 Mean Corpuscular Volume 96.0 Mean Corpuscular Hemoglobin 30.5 Mean Corpuscular Hemoglobin Concent 31.8 L Red Cell Distribution Width 12.7 Platelet Count 187 Mean Platelet Volume 11.0 H Neutrophils % 43.8 Lymphocytes % 44.9 Monocytes % 8.4 Eosinophils % 2.2 Basophils % 0.5 Nucleated Red Blood Cells % 0.0 Neutrophils # 2.6 Lymphocytes # 2.6 Monocytes # 0.5 Eosinophils # 0.1 Basophils # 0.0 Nucleated Red Blood Cells # 0.0 Sodium Level 142 Potassium Level 4.3 Chloride Level 106 Carbon Dioxide Level 30 Anion Gap 10 Blood Urea Nitrogen 21 H Creatinine 0.97 Glucose Level 90 Calcium Level 8.9 Phosphorus Level 4.5 Magnesium Level 2.1 Medications Medications Current Medications Hydralazine HCl (Apresoline) 10 mg Q4H PRN IV SBP>170; Start 06/03/17 at 15:30 Atorvastatin Calcium (Lipitor) 40 mg QHS PO Last administered on 06/05/17 20: 41; Admin Dose 40 MG; Start 06/03/17 at 21:00 Pregabalin (Lyrica) 50 mg BID PO Last administered on 06/06/17 09:56; Admin Dose 50 MG; Start 06/03/17 at 21:00 Memantine (Namenda) 10 mg BID PO Last administered on 06/06/17 08:53; Admin Dose 10 MG; Start 06/04/17 at 21:00 Nystatin (Nystatin Powder) 1 applic BID TOP Last administered on 06/04/17 21: 00; Admin Dose 1 APPLIC; Start 06/03/17 at 21:00 Methocarbamol (Robaxin) 500 mg TID PO Last administered on 06/06/17 08:53; Admin Dose 500 MG; Start 06/03/17 at 21:00 Lorazepam (Ativan) 0.5 mg Q6H PRN IV ANXIETY; Start 06/03/17 at 17:30 Ondansetron HCl (Zofran Inj) 4 mg Q6H PRN IV NAUSEA AND/OR VOMITING; Start 06/03/17 at 17:30 Acetaminophen (Tylenol Tab) 650 mg Q6H PRN PO PAIN LEVEL 1-3 OR FEVER; Start 06/03/17 at 17:30 Oxycodone/ Acetaminophen (Percocet (5/ 325)) 1 tab Q6H PRN PO PAIN LEVEL 6-10; Start 06/03/17 at 17:30 Bisacodyl (Dulcolax) 5 mg DAILY PRN PO CONSTIPATION; Start 06/03/17 at 17:30 Pantoprazole (Protonix Tab) 40 mg DAILY@06 PO Last administered on 06/06/17 06:22; Admin Dose 40 MG; Start 06/04/17 at 06:00 Heparin Sodium (Porcine) (Heparin (5000 Units/0.5 ml)) 5,000 unit Q8 SC Last administered on 06/05/17 20:51; Admin Dose 5,000 UNIT; Start 06/03/17 at 22:00 Cephalexin (Keflex) 500 mg Q8 PO Last administered on 06/06/17 06:23; Admin Dose 500 MG; Start 06/05/17 at 14:00; Stop 06/07/17 at 13:59 Losartan Potassium (Cozaar) 12.5 mg DAILY PO Last administered on 06/06/17 08 :54; Admin Dose 12.5 MG; Start 06/06/17 at 09:00 Meclizine HCl (Antivert) 12.5 mg TID PO Last administered on 06/06/17 08:53; Admin Dose 12.5 MG; Start 06/05/17 at 13:00 ROBIN VILLASENOR MD Jun 06, 2017 11:43
[2017-06-06] MEDS: BISACODYL (EC) 5 MG TAB PO PRN (14:23)
--- NOTE | 2017-06-06 15:48 | CONS ---
Date/Time of Note Date/Time of Note DATE: 06/06/17 TIME: 15:44 Consult Date/Type/Reason Admit Date/Time Jun 03, 2017 at 12:36 Initial Consult Date Type of Consultation: neuro Subjective Much better, less vertigo Objective Vital Signs Date Time Temp Pulse Resp B/P Pulse Ox O2 Delivery O2 Flow Rate FiO2 06/06/17 12:21 47 06/06/17 11:33 97.9 18 136/63 98 06/03/17 18:22 Room Air 06/03/17 10:52 2 Intake and Output 06/05/17 06/05/17 06/06/17 14:59 22:59 06:59 Intake Total 200 ml 500 ml Balance 200 ml 500 ml Results/Medications Result Diagram: 06/06/17 0534 06/06/17 0534 Results 24 hrs Laboratory Tests Test 06/06/17 05:34 White Blood Count 5.9 Red Blood Count 4.00 L Hemoglobin 12.2 Hematocrit 38.4 Mean Corpuscular Volume 96.0 Mean Corpuscular Hemoglobin 30.5 Mean Corpuscular Hemoglobin Concent 31.8 L Red Cell Distribution Width 12.7 Platelet Count 187 Mean Platelet Volume 11.0 H Neutrophils % 43.8 Lymphocytes % 44.9 Monocytes % 8.4 Eosinophils % 2.2 Basophils % 0.5 Nucleated Red Blood Cells % 0.0 Neutrophils # 2.6 Lymphocytes # 2.6 Monocytes # 0.5 Eosinophils # 0.1 Basophils # 0.0 Nucleated Red Blood Cells # 0.0 Sodium Level 142 Potassium Level 4.3 Chloride Level 106 Carbon Dioxide Level 30 Anion Gap 10 Blood Urea Nitrogen 21 H Creatinine 0.97 Glucose Level 90 Calcium Level 8.9 Phosphorus Level 4.5 Magnesium Level 2.1 Medications Current Medications Hydralazine HCl (Apresoline) 10 mg Q4H PRN IV SBP>170; Start 06/03/17 at 15:30 Atorvastatin Calcium (Lipitor) 40 mg QHS PO Last administered on 06/05/17 20: 41; Admin Dose 40 MG; Start 06/03/17 at 21:00 Pregabalin (Lyrica) 50 mg BID PO Last administered on 06/06/17 09:56; Admin Dose 50 MG; Start 06/03/17 at 21:00 Memantine (Namenda) 10 mg BID PO Last administered on 06/06/17 08:53; Admin Dose 10 MG; Start 06/04/17 at 21:00 Nystatin (Nystatin Powder) 1 applic BID TOP Last administered on 06/04/17 21: 00; Admin Dose 1 APPLIC; Start 06/03/17 at 21:00 Methocarbamol (Robaxin) 500 mg TID PO Last administered on 06/06/17 12:56; Admin Dose 500 MG; Start 06/03/17 at 21:00 Lorazepam (Ativan) 0.5 mg Q6H PRN IV ANXIETY; Start 06/03/17 at 17:30 Ondansetron HCl (Zofran Inj) 4 mg Q6H PRN IV NAUSEA AND/OR VOMITING; Start 06/03/17 at 17:30 Acetaminophen (Tylenol Tab) 650 mg Q6H PRN PO PAIN LEVEL 1-3 OR FEVER; Start 06/03/17 at 17:30 Oxycodone/ Acetaminophen (Percocet (5/ 325)) 1 tab Q6H PRN PO PAIN LEVEL 6-10; Start 06/03/17 at 17:30 Bisacodyl (Dulcolax) 5 mg DAILY PRN PO CONSTIPATION Last administered on 14:23; Admin Dose 5 MG; Start 06/03/17 at 17:30 Pantoprazole (Protonix Tab) 40 mg DAILY@06 PO Last administered on 06/06/17 06:22; Admin Dose 40 MG; Start 06/04/17 at 06:00 Heparin Sodium (Porcine) (Heparin (5000 Units/0.5 ml)) 5,000 unit Q8 SC Last administered on 06/06/17 14:05; Admin Dose 5,000 UNIT; Start 06/03/17 at 22:00 Cephalexin (Keflex) 500 mg Q8 PO Last administered on 06/06/17 14:00; Admin Dose 500 MG; Start 06/05/17 at 14:00; Stop 06/07/17 at 13:59 Losartan Potassium (Cozaar) 12.5 mg DAILY PO Last administered on 06/06/17 08 :54; Admin Dose 12.5 MG; Start 06/06/17 at 09:00 Meclizine HCl (Antivert) 12.5 mg TID PO Last administered on 06/06/17 12:56; Admin Dose 12.5 MG; Start 06/05/17 at 13:00 Assessment/Plan Chief Complaint/Hosp Course NEUROLOGIC EXAM: She is awake, alert, and oriented x3 with fluent speech. Cranial nerve examination shows intact visual garza bilaterally. Pupils reactive from 4 to 2 mm bilaterally. Extraocular movements intact without nystagmus. Symmetrical face. Preserved facial strength and sensation. Tongue is in midline. Palate elevates symmetrically. Motor strength examination preserved in all extremities. Normal bulk, tone and strength. Sensory examination intact to light touch and pain. Deep tendon reflexes 2+ throughout , downgoing toes bilaterally. Coordination preserved on [id number] testing. No dysmetria or tremor. Gait limping secondary to pain in the knee IMPRESSION: Vertigo following blunt head trauma secondary to incidental fall 2 weeks ago, especially noticeable about 10 days ago. Overall, slightly getting better. Vertigo has definite positional component that likely represents benign positional vertigo. Continue meclizine around the clock, she was explained (through her family at bedside) how to do Duncan-Daroff maneuver as vestibular exercises at home OK to d/c home from my point The patient has a small calcified meningioma which could be followed by serial MRI, probably needed to be repeated in 6 or 12 months. Problems: SANDRA MORENO MD Jun 06, 2017 15:48
[2017-06-06] MEDS: ATORVASTATIN 40 MG TAB PO SCH (20:51)
[2017-06-06] MEDS: ZOLPIDEM 5 MG TAB PO PRN (23:37)
[2017-06-07] VITALS (8 sets, daily range): BP systolic 114–139; BP diastolic 58–60; PULSE 45–59; RESP 18–20
[2017-06-07] MEDS: ZOLPIDEM 5 MG TAB PO PRN (00:42)
[2017-06-07] MEDS: CEPHALEXIN 500 MG CAP PO SCH (06:34)
[2017-06-07] MEDS: LEVOTHYROXINE 100 MCG TAB PO SCH (06:34)
[2017-06-07] MEDS: PANTOPRAZOLE (EC) 40 MG TAB PO SCH (06:34)
[2017-06-07] MEDS: HEPARIN 5,000 UNIT/0.5 ML VIAL SC SCH (06:40)
[2017-06-07] MEDS: NYSTATIN 30 GM POWDER BTL TOP SCH (09:00)
[2017-06-07] MEDS: METHOCARBAMOL 500 MG TAB PO SCH ×2 (09:16→13:00)
[2017-06-07] MEDS: MECLIZINE 12.5 MG TAB PO SCH ×2 (09:16→13:00)
[2017-06-07] MEDS: LOSARTAN 25 MG TAB PO SCH (09:17)
[2017-06-07] MEDS: MEMANTINE 10 MG TAB PO SCH (09:17)
[2017-06-07] MEDS: PREGABALIN 50 MG CAP PO SCH (09:17)
[2017-06-07] MEDS: BISACODYL (EC) 5 MG TAB PO PRN (09:25)
--- NOTE | 2017-06-07 10:26 | PN ---
Date/Time of Note Date/Time of Note DATE: 06/07/17 TIME: 10:26 Assessment/Plan VTE Prophylaxis VTE Prophylaxis Intervention: SCD's Lines/Catheters IV Catheter Type (from Nrsg): Saline Lock Urinary Cath still in place: No Assessment/Plan Assessment/Plan 1. Symptomatic bradycardia - Cardiology consultation appreciated and recommending avoiding AV kendall blockers - ECHO and carotid US results reviewed - Will continue on Cozaar and discontinue other home medications 2. BPPV - Neurology on board and recommendations appreciated. Meclizine changed from p.r.n. to around the clock and recommending to get physical therapy with vestibular exercises. 3. Right thoracic pain- resolved - Muscle relaxer for possible muscular skeletal pain - chest x-ray negative for acute thoracic fracture 4. Right arm fracture, 2 weeks prior - Stable 5. Hypertension - continue on Cozaar and advised patient to monitor BP at home - stable 6. Dementia - stable - Continue on Memantine - donepezil discontinued due to possibly contributing to vestibular symptoms 7. Dyslipidemia - on statin 8. Hypothyroidism - on levothyroxine 9. Calcified meningioma - Neurology on board and recommending follow up MRI imaging in 6-12 months 10. Disposition - Cleared for discharge by Neurology and medically stable for discharge home Subjective 24 Hr Interval Summary Free Text/Dictation Patient doing well with no new complaints. No acute overnight events. Ambulating to restroom with no issues. Exam/Review of Systems Vital Signs Vitals Vital Signs Date Time Temp Pulse Resp B/P Pulse Ox O2 Delivery O2 Flow Rate FiO2 06/07/17 08:00 45 06/07/17 07:52 97.9 18 131/58 99 06/03/17 18:22 Room Air 06/03/17 10:52 2 Intake and Output 06/06/17 06/06/17 06/07/17 15:00 23:00 07:00 Intake Total 750 ml 250 ml Balance 750 ml 250 ml Exam General: Patient is in no acute distress, laying in bed and answers questions appropriately Mentation: Patient is alert and oriented 4, Head: Normocephalic atraumatic Eyes: EOMI, pupils reactive to light Neck: Supple, nontender, midline Respiratory: Clear to auscultation bilaterally Cardiovascular: regular rate, no obvious murmurs Gastrointestinal: non-tender to palpation, bowel sounds heard. Neurological: Moves all extremities spontaneously Results Result Diagram: 06/06/1734 06/06/1734 Medications Medications Current Medications Hydralazine HCl (Apresoline) 10 mg Q4H PRN IV SBP>170; Start 06/03/17 at 15:30 Atorvastatin Calcium (Lipitor) 40 mg QHS PO Last administered on 06/06/17 20: 51; Admin Dose 40 MG; Start 06/03/17 at 21:00 Pregabalin (Lyrica) 50 mg BID PO Last administered on 06/07/17 09:17; Admin Dose 50 MG; Start 06/03/17 at 21:00 Memantine (Namenda) 10 mg BID PO Last administered on 06/07/17 09:17; Admin Dose 10 MG; Start 06/04/17 at 21:00 Nystatin (Nystatin Powder) 1 applic BID TOP Last administered on 06/04/17 21: 00; Admin Dose 1 APPLIC; Start 06/03/17 at 21:00 Methocarbamol (Robaxin) 500 mg TID PO Last administered on 06/07/17 09:16; Admin Dose 500 MG; Start 06/03/17 at 21:00 Lorazepam (Ativan) 0.5 mg Q6H PRN IV ANXIETY; Start 06/03/17 at 17:30 Ondansetron HCl (Zofran Inj) 4 mg Q6H PRN IV NAUSEA AND/OR VOMITING; Start 06/03/17 at 17:30 Acetaminophen (Tylenol Tab) 650 mg Q6H PRN PO PAIN LEVEL 1-3 OR FEVER; Start 06/03/17 at 17:30 Oxycodone/ Acetaminophen (Percocet (5/ 325)) 1 tab Q6H PRN PO PAIN LEVEL 6-10; Start 06/03/17 at 17:30 Bisacodyl (Dulcolax) 5 mg DAILY PRN PO CONSTIPATION Last administered on 09:25; Admin Dose 5 MG; Start 06/03/17 at 17:30 Pantoprazole (Protonix Tab) 40 mg DAILY@06 PO Last administered on 06/07/17 06:34; Admin Dose 40 MG; Start 06/04/17 at 06:00 Heparin Sodium (Porcine) (Heparin (5000 Units/0.5 ml)) 5,000 unit Q8 SC Last administered on 06/07/17 06:40; Admin Dose 5,000 UNIT; Start 06/03/17 at 22:00 Cephalexin (Keflex) 500 mg Q8 PO Last administered on 06/07/17 06:34; Admin Dose 500 MG; Start 06/05/17 at 14:00; Stop 06/07/17 at 13:59 Losartan Potassium (Cozaar) 12.5 mg DAILY PO Last administered on 06/07/17 09 :17; Admin Dose 12.5 MG; Start 06/06/17 at 09:00 Meclizine HCl (Antivert) 12.5 mg TID PO Last administered on 06/07/17 09:16; Admin Dose 12.5 MG; Start 06/05/17 at 13:00 ROBIN VILLASENOR MD Jun 07, 2017 10:26
[2017-06-07] MEDS ORDERED: MECL12.574 PO (10:29)
[2017-06-07] MEDS ORDERED: METH500T8 PO (10:29)
[2017-06-07] MEDS ORDERED: MEMA10TA20 PO (10:39)
[2017-06-07] MEDS ORDERED: LOSA25TA2 PO (10:39)
--- NOTE | 2017-06-07 10:47 | PDOCDIS ---
Discharge Instructions DIAGNOSIS Discharge Diagnosis 1. Symptomatic bradycardia 2. BPPV 3. Right thoracic pain- resolved 4. Right arm fracture, 2 weeks prior 5. Hypertension 6. Dementia 7. Dyslipidemia 8. Hypothyroidism 9. Calcified meningioma CONDITION Patient Condition: Good HOME CARE INSTRUCTIONS: Diet Instructions: Low Fat /CholesterolSpecial Diet: cardiac ACTIVITY: Activity Restrictions: Slowly Increase Activity FOLLOW UP/APPOINTMENTS Follow-up Plan 1. Take Meclizine 3 times a day for dizziness until symptoms resolve 2. Follow up with your primary care physician in 1 week 3. Your blood pressure medications were adjusted due to possibly causing your symptoms. Take only Cozaar 12.5mg twice a day and monitor your blood pressure. If continues to be greater than 160, call your PCP 4. Take Memantine 10mg twice daily and do not take with donepizil as this may be contributing to your dizziness 5. You will need to have a follow up MRI performed in 6-12 months to monitor the size of small calcified meningioma in your brain. 6. Perform the Duncan-Daroff maneuver as vestibular exercises at home that was shown to you to help with the vertigo 7. If symptoms worsen, call your PCP or return to ED. Follow up with Neurologist if symptoms do not improve REFERRALS Other Referrals Alfred Wood MD Specialty : Neurology Office Address [address] [facility] [address] [place] [address] Office ROBIN VILLASENOR MD Jun 07, 2017 10:47
--- NOTE | 2017-06-07 14:55 | DS ---
Date/Time of Note Date/Time of Note DATE: 06/07/17 TIME: 14:35 Discharge Summary Admission/Discharge Info Admit Date/Time Jun 03, 2017 at 12:36 Discharge Date/Time Jun 07, 2017 at 14:00 Discharge Diagnosis 1. Symptomatic bradycardia 2. BPPV 3. Right thoracic pain- resolved 4. Right arm fracture, 2 weeks prior 5. Hypertension 6. Dementia 7. Dyslipidemia 8. Hypothyroidism 9. Calcified meningioma Patient Condition: Good Consults Cardiology Neurology Procedures PROCEDURE: US carotid arteries. CLINICAL INDICATION: Dizziness. TECHNIQUE: Multiple sonographic images of the carotid arteries and vertebral arteries were obtained utilizing austin scale, duplex, and color-flow imaging. The images were reviewed on a PACS workstation. COMPARISON: No prior studies are available for comparison. FINDINGS: Evaluation of the right carotid bifurcation region reveals mild atherosclerotic disease. Evaluation of the left carotid bifurcation region reveals mild atherosclerotic disease. There is antegrade flow within the vertebral arteries bilaterally. RIGHT CAROTID MEASUREMENTS: Common Carotid Artery 38 (cm/sec) Internal Carotid Artery 45 (cm/sec) External Carotid Artery 49 (cm/sec) Vertebral Artery 28 (cm/sec) Internal Carotid/Common Carotid 1.2 LEFT CAROTID MEASUREMENTS: Common Carotid Artery 52 (cm/sec) Internal Carotid Artery 66 (cm/sec) External Carotid Artery 41 (cm/sec) Vertebral Artery 47 (cm/sec) Internal Carotid/Common Carotid 1.3 Validated velocity measurements with angiographic measurements. Velocity criteria are extrapolated from diameter data as defined by the Society of Radiologists in Ultrasound Consensus Conference. Radiology 2003; 229;340-346. This study does indirectly reference the measurement of the distal ICA diameter as the denominator for stenosis measurement. IMPRESSION: 1. Less than 50% stenosis bilaterally in the internal carotid arteries. 2. Normal antegrade flow in the vertebral arteries bilaterally PROCEDURE: XR Chest. CLINICAL INDICATION: Shortness of breath. TECHNIQUE: Single frontal view. COMPARISON: 08/14/2011. FINDINGS: The lungs are clear. The heart is enlarged. There is calcification in the aorta consistent with atherosclerosis. There is no pleural effusion. There is no pneumothorax. IMPRESSION: 1. Cardiomegaly and atherosclerosis. 2. Clear lungs. 3. Otherwise unremarkable chest radiograph. PROCEDURE: CT BRAIN WITHOUT CONTRAST. CLINICAL INDICATION: Dizziness and at the cardia TECHNIQUE: A CT of the brain was performed on a multidetector high-resolution CT scanner utilizing axial imaging from the skull base through the vertex without IV contrast. Multiplanar reformatted images were made. Images were reviewed on a PACS workstation. The CTDIvol is 44 mGy and the DLP is 630.2 mGycm. One or more of the following dose reduction techniques were used: - Automated exposure control. - Adjustment of the mA and/or kV according to patient size. - Use of iterative reconstruction technique. COMPARISON: None FINDINGS: The posterior fossa structures are unremarkable. The janette, midbrain, and medulla appear to be with normal limits. There is no evidence of acute intracranial hemorrhage, infarct, or extra-axial fluid collection. No gross mass effect or midline shift. Cerebral sulci, cisternal spaces, and ventricles are prominent. Mild periventricular/ subcortical white matter lucencies are identified. 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 The visualized paranasal sinuses are clear. The mastoid air cells are well- aerated. The calvarium is unremarkable. IMPRESSION: 1. No evidence of acute intracranial hemorrhage, infarct, or extra-axial fluid collection. 2. 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 CLINICAL INDICATION: Dizziness. TECHNIQUE: An MRI of the brain was performed utilizing the following sequences : Sagittal T1 weighted, axial T2 weighted, axial diffusion weighted (EPI technique [id number]), axial ADC mapping, and axial FLAIR. Additionally, thin section imaging through the internal auditory canals was performed utilizing the following sequences: 3D volume high resolution T2 weighted images. COMPARISON: Brain CT06/03/2017. FINDINGS: MRI BRAIN: No diffusion weighted abnormalities are seen to suggest the presence of acute ischemia or recent infarct. There is 1.3 x 1.3 x 1 cm (AP x transverse x craniocaudal) extra-axial mass overlying the left posterior frontal lobe with associated gradient susceptibility effect which likely represent a calcified meningioma. There is no evidence of intracranial hemorrhage or midline shift. No extra-axial fluid collections are seen. The ventricles and sulci are mildly enlarged indicative of volume loss. There are mild scattered foci of T2 FLAIR hyperintensity in the periventricular , deep, and subcortical white matter, which are nonspecific in etiology but likely reflect chronic small vessel ischemic changes. Small T2 hyperintense foci are noted in bilateral lentiform nuclei and caudate nuclei which likely represent dilated perivascular spaces. No abnormal intracranial vascular flow void is noted. The visualized paranasal sinuses demonstrate mild scattered mucosal thickening. Mild opacification of the right mastoid air cells are noted. MRI IACS: The internal auditory canals are patent. The seventh and eighth cranial nerve complexes are unremarkable. No cerebellar pontine angle mass lesion is detected. The inner ear structures including the cochlea, vestibule and semicircular canals are unremarkable. No vascular loops are identified. The visualized fifth cranial nerves and Meckel's cave reveal no abnormality. The mastoid air cells are clear. IMPRESSION: 1. No acute intracranial hemorrhage or infarction. 2. 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 3. Mild chronic small vessel changes and mild generalized cerebral volume loss. 4. Otherwise unremarkable unenhanced MRI of internal auditory canals. Hx of Present Illness Patient is a 81-year-old female with a past medical history significant for hypothyroidism, mild dementia, hypertension, dyslipidemia, arthritis who presents to [facility] for 10 day history of dizziness and right sided thoracic pain that comes and goes. Patient's has been feeling ill for approximately 7days since her fall approximately 2 weeks ago, which she fractured her right arm and is currently in a cast. The fall was unrelated to any current symptoms. Patient states that although she did not take her medications today, she normally takes her medications and follows up with primary care provider normally. Patient states that even while seated currently she is feeling as if the room is spinning around and she is scared to walk. Patient denies any shortness of breath and thoracic pain is mainly limited to movement oriented pain. Patient has never had episodes like this before. Patient denies nausea vomiting, shortness of breath, bowel or bladder dysfunction PMH: Hypothyroidism, dementia, hypertension, dyslipidemia, arthritis, right arm fracture 2 weeks ago status post mechanical fall PSH: None Social: Denies Meds: See med rec for dosages, atorvastatin, Bystolic, olmesartan, hydrochlorthiazide, memantine, donepezil, Lyrica, levothyroxine Hospital Course Patient was admitted to telemetry and Cardiology was consulted for further recommendations. ECHO, carotid duplex, and MRI of brain were ordered. Patient was found to have bradycardia and was complaining of dizziness as well. Cardiology adjusted patient medications due to symptomatic bradycardia. Patient started on Robaxin for musculoskeletal pain that could possibly be related to recent fall. CXR was negative for any acute rib fractures. Neurology was consulted as well for further evaluation of MRI findings of calcified meningioma. Per Neurology, patient was experiencing BPPV and started on Meclizine which helped improve symptoms. Patient was also instructed how to do Duncan-Daroff maneuver as vestibular exercises at home Regarding the meningioma, Neurology had recommended serial MRI follow up in 6-12 months. Patients donepezil was discontinued due to possibly contributing to dizziness. Patients vertigo improved and was able to ambulate around hospital room without any issues. Patient was also cleared by Neurology for discharge home. Patient was instructed to follow up with PCP in 1 week. Home Meds Active Scripts Memantine HCl (Memantine HCl) 10 Mg Tablet, 10 MG PO BID for 30 Days, #60 TAB Prov:ROBIN VILLASENOR MD 06/07/17 Losartan Potassium* (Cozaar*) 25 Mg Tablet, 12.5 MG PO DAILY for 30 Days, #60 TAB Prov:ROBIN VILLASENOR MD 06/07/17 Meclizine Hcl* (Antivert*) 12.5 Mg Tab, 12.5 MG PO TID for 30 Days, #90 TAB Prov:ROBIN VILLASENOR MD 06/07/17 Methocarbamol* (Methocarbamol*) 500 Mg Tablet, 500 MG PO TID, #90 TAB Prov:ROBIN VILLASENOR MD 06/07/17 Reported Medications Pregabalin* (Lyrica*) 50 Mg Capsule, 50 MG PO BID, CAP 06/03/17 Atorvastatin* (Atorvastatin*) 40 Mg Tablet, 40 MG PO QHS, #30 TAB 06/03/17 Levothyroxine Sodium* (Levothyroxine Sodium*) 100 Mcg Tablet, 100 MCG PO BEFORE BREAKFAST, #30 TAB 06/03/17 Discontinued Reported Medications Olmesartan/Hydrochlorothiazide (Olmesartan-Hctz 40-12.5 mg Tab) 1 Each Tablet, 1 TAB PO DAILY, #30 06/03/17 Memantine HCl/Donepezil HCl (Namzaric 28 mg-10 mg Capsule) 1 Each Cap.spr.24, 1 TAB PO DAILY, #30 06/03/17 Nebivolol Hcl* (Bystolic*) 10 Mg Tablet, 10 MG PO DAILY, #30 TAB 06/03/17 Follow-up Plan 1. Take Meclizine 3 times a day for dizziness until symptoms resolve 2. Follow up with your primary care physician in 1 week 3. Your blood pressure medications were adjusted due to possibly causing your symptoms. Take only Cozaar 12.5mg twice a day and monitor your blood pressure. If continues to be greater than 160, call your PCP 4. Take Memantine 10mg twice daily and do not take with donepizil as this may be contributing to your dizziness 5. You will need to have a follow up MRI performed in 6-12 months to monitor the size of small calcified meningioma in your brain. 6. Perform the Duncan-Daroff maneuver as vestibular exercises at home that was shown to you to help with the vertigo 7. If symptoms worsen, call your PCP or return to ED. Follow up with Neurologist if symptoms do not improve Primary Care Provider Roverto Oliveros Please fax copy of discharge summary to PCP Time spent on discharge: > 30 minutes ROBIN VILLASENOR MD Jun 07, 2017 14:54
== END 2017-06-07 14:00 | disposition home or self-care (01) | DRG 309 ==
LOC: E/R 10:14 → MS3 12:36 → MS4 17:47
PROVIDERS: ADMIT Hospitalist; ATTEND Hospitalist
DX: R00.1 Bradycardia, unspecified (principal); E87.0 Hyperosmolality and hypernatremia; I10 Essential (primary) hypertension; E78.5 Hyperlipidemia, unspecified; E03.9 Hypothyroidism, unspecified; F03.90 Unspecified dementia, unspecified severity, without behavioral disturbance, psychotic disturbance, mood disturbance, and anxiety; L29.0 Pruritus ani; M54.6 Pain in thoracic spine; H81.10 Benign paroxysmal vertigo, unspecified ear; D32.0 Benign neoplasm of cerebral meninges; Z91.81 History of falling
CPT/HCPCS: 36415; 70450; 70551; 71010; 80048; 80053; 80061; 81001; 83690; 83735; 84100; 84443; 84484; 85025; 93005; 93306; 93880; 97116; 97163; J0696; J1644

== ENCOUNTER 2018-03-04 11:24 | Emergency (ER) | END 2018-03-04 14:42 | disposition home or self-care (01) ==